=== PATIENT | female | born 1985 | race Caucasian/White ===

== ENCOUNTER 2017-08-29 16:18 | Day surgery (SDC) | payer OTHER ==
[~2017-08-29 16:18] MED LIST: CEFAZOLIN 1 GM INJ
[2017-08-29] MEDS ORDERED: PROPOFOL 20 ML (19:39)
[2017-08-29] MEDS ORDERED: ONDANSETRON 4 MG INJ (19:39)
[2017-08-29] MEDS ORDERED: MIDAZOLAM 1 MG/ML 2 ML INJ (19:39)
[2017-08-29] MEDS ORDERED: LABETALOL HCL 20MG INJ (19:40)
[2017-08-29] MEDS: BUPIVACAINE 0.5% (SDV) 30 ML INJ (20:01)
[2017-08-29] MEDS: LIDOCAINE 1% (MPF) 30 ML INJ (20:01)
[2017-08-29] MEDS: VANCOMYCIN 1 GM INJ (20:02)
[2017-08-29] MEDS ORDERED: HYDROCODONE/APAP (5/325) TAB PO (20:30)
== END 2017-08-29 21:35 | disposition home or self-care (01) ==
LOC: SDS 16:18
DX: E11.621 Type 2 diabetes mellitus with foot ulcer (principal); L97.529 Non-pressure chronic ulcer of other part of left foot with unspecified severity; E11.42 Type 2 diabetes mellitus with diabetic polyneuropathy; M86.9 Osteomyelitis, unspecified; Z89.429 Acquired absence of other toe(s), unspecified side
CPT/HCPCS: 15120; 82962; 84703

== ENCOUNTER 2018-12-14 20:56 | Inpatient (IN) | payer OTHER ==
[2018-12-14 23:04] LABS: URINE BLOOD (Dip) POC 3+ (NEGATIVE); URINE KETONES (Dip) POC 1+ (NEGATIVE); URINE LEUKOCYTE EST (Dip) POC Negative (NEGATIVE); URINE NITRITE (Dip) POC Negative (NEGATIVE); URINE TOTAL PROTEIN POC 3+ (NEGATIVE)
[2018-12-14 23:04] LABS: URINE PH (Dip) POC 8.5 (5.0-8.5)
[2018-12-14 23:05] LABS: ADD MAN DIFF? NO
[2018-12-14 23:07] LABS: WHITE BLOOD COUNT 13.7 10^3/ul (4.8-10.8)
[2018-12-14 23:07] LABS: BASOPHIL # 0.1 10^3/ul (0.0-0.1); BASOPHILS % 0.7 % (0.0-2.0); HEMATOCRIT 37.9 % (37.0-47.0); HEMOGLOBIN 12.3 g/dl (12.0-16.0); LYMPHOCYTES # 0.9 10^3/ul (0.8-2.9); LYMPHOCYTES % 6.9 % (15.0-51.0); MEAN CORPUSCULAR HGB CONC 32.5 g/dl (32.0-37.0); MEAN CORPUSCULAR VOLUME 83.1 fl (82.0-101.0); MEAN PLATELET VOLUME 10.7 fl (7.4-10.4); MONOCYTE # 0.8 10^3/ul (0.3-0.9); NEUTROPHIL # 11.8 10^3/ul (1.6-7.5); NEUTROPHILS % 86.1 % (39.0-77.0); PLATELET COUNT 470 10^3/UL (140-415); RED BLOOD COUNT 4.56 10^6/ul (4.20-5.40); RED CELL DISTRIBUTION WIDTH 21.8 % (11.5-14.5)
[2018-12-14] MEDS: SOD CHLORIDE 0.9% 1,000 ML IV (23:29)
[2018-12-14] MEDS: morphine 4 MG/ML VIAL IV (23:29)
[2018-12-14] MEDS: FAMOTIDINE 20 MG INJ IV (23:29)
[2018-12-14] MEDS: METOCLOPRAMIDE 10 MG INJ IV (23:29)
[2018-12-14 23:31] LABS: ALANINE AMINOTRANSFERASE 50 IU/L (13-69); ALBUMIN 3.6 g/dl (3.3-4.9); ALBUMIN/GLOBULIN RATIO 1.09; ALKALINE PHOSPHATASE 140 IU/L (42-121); ANION GAP 7 (5-13); ASPARTATE AMINO TRANSFERASE 50 IU/L (15-46); BILIRUBIN,INDIRECT 0.3 mg/dl (0-1.1); BILIRUBIN,TOTAL 0.3 mg/dl (0.2-1.3); BLOOD UREA NITROGEN 32 mg/dl (7-20); CALCIUM 9.2 mg/dl (8.4-10.2); CARBON DIOXIDE 27 mmol/L (21-31); CHLORIDE 108 mmol/L (97-110); CREATININE 3.26 mg/dl (0.44-1.00); Estimated GFR 16 mL/min (>60); GLUCOSE 141 mg/dl (70-220); LIPASE 86 U/L (23-300); POTASSIUM 4.4 mmol/L (3.5-5.1); SODIUM 142 mmol/L (135-144); TOTAL PROTEIN 6.9 g/dl (6.1-8.1)
[2018-12-14 23:41] LABS: TROPONIN-I 0.047 ng/ml (0.000-0.120)
[2018-12-15] MEDS: PIPER-TAZO 3.375 GM IV (PMX) 100 ML IVPB (01:43)
[2018-12-15] MEDS: SODIUM CHLORIDE 0.9% 1L BAG IV* (01:43)
[2018-12-15] MEDS ORDERED: ACETAMINOPHEN 325 MG TAB PO (03:00)
[2018-12-15] MEDS: ONDANSETRON 4 MG INJ IV ×4 (03:27→19:15)
[2018-12-15] MEDS: LABETALOL HCL 20MG INJ IV ×2 (03:27→06:00)
[2018-12-15 03:54] LABS: URINE PH (Dip) POC 7.5 (5.0-8.5)
[2018-12-15 03:54] LABS: URINE BLOOD (Dip) POC 2+ (NEGATIVE); URINE KETONES (Dip) POC Trace (NEGATIVE); URINE LEUKOCYTE EST (Dip) POC Negative (NEGATIVE); URINE NITRITE (Dip) POC Negative (NEGATIVE); URINE TOTAL PROTEIN POC 3+ (NEGATIVE)
[2018-12-15] MEDS ORDERED: PIPER-TAZO 3.375 GM IV (PMX) 100 ML IVPB (04:00)
[2018-12-15] MEDS ORDERED: ALBUTEROL/IPRATROPIUM (NEB) 3 ML AMP HHN (04:00)
[2018-12-15] MEDS ORDERED: GLUCOSE GEL 15 GRAM TUBE PO ×4 (04:00→09:00)
[2018-12-15] MEDS ORDERED: DEXTROSE 50% 50 ML SYRINGE IV ×4 (04:00→09:00)
[2018-12-15] MEDS ORDERED: GLUCOSE GEL 15 GRAM TUBE BUCCAL ×2 (04:00→09:00)
[2018-12-15] MEDS ORDERED: GLUCAGON 1 MG INJ IM ×2 (04:00→09:00)
[2018-12-15] MEDS ORDERED: ACETAMINOPHEN 650 MG SUPP PR (04:00)
[2018-12-15] MEDS ORDERED: NACL 0.9% 3 ML SYG IV (04:00)
[2018-12-15] MEDS: DEXTROSE 5%-0.45% NACL 1,000 ML IV (04:09)
[2018-12-15] MEDS: morphine 4 MG/ML VIAL IV (04:09)
[2018-12-15] MEDS: hydrALAzine 20 MG INJ IV ×4 (04:31→20:39)
[2018-12-15 05:45] LABS: ADD MAN DIFF? NO
[2018-12-15 05:48] LABS: WHITE BLOOD COUNT 12.7 10^3/ul (4.8-10.8)
[2018-12-15 05:48] LABS: BASOPHIL # 0.1 10^3/ul (0.0-0.1); BASOPHILS % 0.7 % (0.0-2.0); EOSINOPHILS % 0.1 % (0.0-7.0); HEMATOCRIT 31.2 % (37.0-47.0); LYMPHOCYTES # 1.1 10^3/ul (0.8-2.9); LYMPHOCYTES % 8.3 % (15.0-51.0); MEAN CORPUSCULAR HEMOGLOBIN 27.1 pg (29.0-33.0); MEAN CORPUSCULAR HGB CONC 32.1 g/dl (32.0-37.0); MEAN CORPUSCULAR VOLUME 84.6 fl (82.0-101.0); MONOCYTE # 0.8 10^3/ul (0.3-0.9); NEUTROPHIL # 10.7 10^3/ul (1.6-7.5); NEUTROPHILS % 84.3 % (39.0-77.0); PLATELET COUNT 386 10^3/UL (140-415); RED BLOOD COUNT 3.69 10^6/ul (4.20-5.40); RED CELL DISTRIBUTION WIDTH 21.4 % (11.5-14.5)
[2018-12-15] MEDS ORDERED: LABETALOL HCL 20MG INJ IV (06:00)
[2018-12-15 06:08] LABS: HEMOGLOBIN A1C 5.6 % (0-5.9)
[2018-12-15 06:13] LABS: ALANINE AMINOTRANSFERASE 43 IU/L (13-69); ALBUMIN 2.6 g/dl (3.3-4.9); ALBUMIN/GLOBULIN RATIO 0.92; ALKALINE PHOSPHATASE 99 IU/L (42-121); ANION GAP 6 (5-13); ASPARTATE AMINO TRANSFERASE 40 IU/L (15-46); BILIRUBIN,INDIRECT 0.2 mg/dl (0-1.1); BILIRUBIN,TOTAL 0.2 mg/dl (0.2-1.3); BLOOD UREA NITROGEN 28 mg/dl (7-20); CALCIUM 7.7 mg/dl (8.4-10.2); CARBON DIOXIDE 22 mmol/L (21-31); CHLORIDE 112 mmol/L (97-110); CHOL/HDL RATIO 3.9 RATIO; CHOLESTEROL 170 mg/dl (100-200); CREATININE 2.69 mg/dl (0.44-1.00); Estimated GFR 20 mL/min (>60); GLUCOSE 230 mg/dl (70-220); HDL CHOLESTEROL 43 mg/dl (34-82); LDL CHOLESTEROL,CALCULATED 103 mg/dl; MAGNESIUM 1.8 mg/dl (1.7-2.5); PHOSPHORUS 4.7 mg/dl (2.5-4.9); POTASSIUM 3.8 mmol/L (3.5-5.1); SODIUM 140 mmol/L (135-144); TOTAL PROTEIN 5.4 g/dl (6.1-8.1); TRIGLYCERIDES 118 mg/dl (0-149)
[2018-12-15] MEDS: PIPER-TAZO 2.25 GM (PMX) 50 ML IVPB ×3 (06:48→22:21)
[2018-12-15] MEDS: INSULIN ASPART [NOVOLOG] 3 ML PEN SC ×6 (08:00→20:44)
[2018-12-15] MEDS: LACTATED RINGER'S 1,000 ML IV ×2 (08:53→21:30)
[2018-12-15] MEDS: ENALAPRILAT 1.25 MG INJ IV ×3 (08:54→22:20)
[2018-12-15 09:05] LABS: IRON 38 ug/dl (35-150)
[2018-12-15 09:14] LABS: % IRON SATURATION 20 % SAT (22-52); TOTAL IRON BINDING CAPACITY 192 ug/dl (241-421)
[2018-12-15] MEDS: INSULIN GLARGINE [LANTus] (100 UNITS/ML) SYG SC (09:25)
[2018-12-15] MEDS: ACCU-CHEK XX ×4 (09:25→20:41)
[2018-12-15 10:14] LABS: HEPATITIS B SURFACE ANTIGEN NEGATIVE (NEGATIVE)
[2018-12-15 10:31] LABS: HEPATITIS C VIRAL ANTIBODY NEGATIVE (NEGATIVE)
[2018-12-15 10:32] LABS: HEPATITIS B SURFACE ANTIBODY NEGATIVE (NEGATIVE)
[2018-12-15] MEDS: morphine 2 MG INJ IV (19:47)
[2018-12-16] MEDS: Insulin NOVOLOG SS MILD Algorithm (NPO/TPN/ENTERAL FEEDS) SC ×6 (01:00→20:18)
[2018-12-16] MEDS ORDERED: INSULIN ASPART [NOVOLOG] 3 ML PEN SC (01:00)
[2018-12-16] MEDS: ACCU-CHEK XX ×4 (01:03→20:00)
[2018-12-16] MEDS: ONDANSETRON 4 MG INJ IV (01:10)
[2018-12-16] MEDS: hydrALAzine 20 MG INJ IV ×2 (01:13→08:02)
[2018-12-16] MEDS ORDERED: ACCU-CHEK XX (02:00)
[2018-12-16] MEDS: LACTATED RINGER'S 1,000 ML IV ×3 (05:12→21:30)
[2018-12-16 06:10] LABS: ADD MAN DIFF? NO
[2018-12-16] MEDS: PIPER-TAZO 2.25 GM (PMX) 50 ML IVPB ×3 (06:26→21:26)
[2018-12-16] MEDS: ENALAPRILAT 1.25 MG INJ IV ×3 (06:28→21:31)
[2018-12-16 06:29] LABS: BASOPHIL # 0.1 10^3/ul (0.0-0.1); BASOPHILS % 0.8 % (0.0-2.0); EOSINOPHILS % 0.1 % (0.0-7.0); HEMATOCRIT 31.1 % (37.0-47.0); HEMOGLOBIN 10.1 g/dl (12.0-16.0); LYMPHOCYTES # 1.2 10^3/ul (0.8-2.9); LYMPHOCYTES % 9.9 % (15.0-51.0); MEAN CORPUSCULAR HEMOGLOBIN 27.5 pg (29.0-33.0); MEAN CORPUSCULAR HGB CONC 32.5 g/dl (32.0-37.0); MEAN CORPUSCULAR VOLUME 84.7 fl (82.0-101.0); MEAN PLATELET VOLUME 11.4 fl (7.4-10.4); MONOCYTE # 1.1 10^3/ul (0.3-0.9); MONOCYTES % 8.5 % (0.0-11.0); NEUTROPHIL # 10.1 10^3/ul (1.6-7.5); NEUTROPHILS % 80.1 % (39.0-77.0); PLATELET COUNT 381 10^3/UL (140-415); RED BLOOD COUNT 3.67 10^6/ul (4.20-5.40)
[2018-12-16 06:29] LABS: WHITE BLOOD COUNT 12.6 10^3/ul (4.8-10.8)
[2018-12-16 06:50] LABS: ANION GAP 7 (5-13); BLOOD UREA NITROGEN 33 mg/dl (7-20); CALCIUM 8.1 mg/dl (8.4-10.2); CARBON DIOXIDE 22 mmol/L (21-31); CHLORIDE 114 mmol/L (97-110); CREATININE 3.49 mg/dl (0.44-1.00); Estimated GFR 15 mL/min (>60); GLUCOSE 88 mg/dl (70-220); PHOSPHORUS 5.6 mg/dl (2.5-4.9); POTASSIUM 3.8 mmol/L (3.5-5.1); SODIUM 143 mmol/L (135-144)
[2018-12-16] MEDS: INSULIN GLARGINE [LANTus] (100 UNITS/ML) SYG SC ×2 (08:00→09:07)
[2018-12-16] MEDS: INSULIN ASPART [NOVOLOG] 3 ML PEN SC ×3 (08:00→17:40)
[2018-12-16] MEDS: SOD FERRIC GLUC COMPLX 125 MG in SOD CHLORIDE 0.9% 100 ML IVPB (11:19)
[2018-12-16] MEDS: METOPROLOL 50 MG TAB PO ×2 (11:19→20:19)
[2018-12-16] MEDS: CALCIUM CARBONATE 500 MG CHEW TAB PO ×2 (13:00→17:54)
[2018-12-16] MEDS: ERGOCALCIFEROL 50,000 UNIT CAP PO (17:38)
[2018-12-17] MEDS: Insulin NOVOLOG SS MILD Algorithm (NPO/TPN/ENTERAL FEEDS) SC ×6 (00:35→21:00)
[2018-12-17] MEDS: ACCU-CHEK XX ×4 (01:01→21:10)
[2018-12-17 05:14] LABS: ABNORMAL IP MESSAGE 1; ADD MAN DIFF? NO; BASOPHIL # 0.1 10^3/ul (0.0-0.1); EOSINOPHILS # 0.3 10^3/ul (0.0-0.5); EOSINOPHILS % 2.9 % (0.0-7.0); HEMATOCRIT 28.6 % (37.0-47.0); LYMPHOCYTES # 2.3 10^3/ul (0.8-2.9); LYMPHOCYTES % 22.2 % (15.0-51.0); MEAN CORPUSCULAR HEMOGLOBIN 27.2 pg (29.0-33.0); MEAN CORPUSCULAR HGB CONC 31.5 g/dl (32.0-37.0); MEAN CORPUSCULAR VOLUME 86.4 fl (82.0-101.0); MONOCYTE # 1.2 10^3/ul (0.3-0.9); MONOCYTES % 11.9 % (0.0-11.0); NEUTROPHIL # 6.4 10^3/ul (1.6-7.5); NEUTROPHILS % 61.5 % (39.0-77.0); PLATELET COUNT 336 10^3/UL (140-415); RED BLOOD COUNT 3.31 10^6/ul (4.20-5.40)
[2018-12-17 05:14] LABS: WHITE BLOOD COUNT 10.4 10^3/ul (4.8-10.8)
[2018-12-17 05:30] LABS: MAGNESIUM 1.9 mg/dl (1.7-2.5)
[2018-12-17 05:30] LABS: PHOSPHORUS 5.1 mg/dl (2.5-4.9)
[2018-12-17 05:37] LABS: ALANINE AMINOTRANSFERASE 37 IU/L (13-69); ALBUMIN 2.4 g/dl (3.3-4.9); ALBUMIN/GLOBULIN RATIO 0.88; ALKALINE PHOSPHATASE 76 IU/L (42-121); ANION GAP 6 (5-13); ASPARTATE AMINO TRANSFERASE 23 IU/L (15-46); BILIRUBIN,INDIRECT 0.1 mg/dl (0-1.1); BILIRUBIN,TOTAL 0.1 mg/dl (0.2-1.3); BLOOD UREA NITROGEN 35 mg/dl (7-20); CALCIUM 7.7 mg/dl (8.4-10.2); CARBON DIOXIDE 21 mmol/L (21-31); CHLORIDE 110 mmol/L (97-110); Estimated GFR 15 mL/min (>60); GLUCOSE 70 mg/dl (70-220); POTASSIUM 3.8 mmol/L (3.5-5.1); SODIUM 137 mmol/L (135-144); TOTAL PROTEIN 5.1 g/dl (6.1-8.1)
[2018-12-17] MEDS: ENALAPRILAT 1.25 MG INJ IV ×3 (05:51→21:09)
[2018-12-17] MEDS: PIPER-TAZO 2.25 GM (PMX) 50 ML IVPB ×3 (05:51→21:10)
[2018-12-17 06:58] LABS: POSITIVE DIFF @See below
[2018-12-17] MEDS: INSULIN ASPART [NOVOLOG] 3 ML PEN SC ×3 (08:00→17:43)
[2018-12-17] MEDS: FOLIC ACID 1 MG TAB PO (08:03)
[2018-12-17] MEDS: CALCIUM CARBONATE 500 MG CHEW TAB PO ×3 (08:04→18:26)
[2018-12-17] MEDS: METOPROLOL 50 MG TAB PO ×2 (08:05→21:09)
[2018-12-17] MEDS: INSULIN GLARGINE [LANTus] (100 UNITS/ML) SYG SC (08:09)
[2018-12-17] MEDS: LACTATED RINGER'S 1,000 ML IV ×2 (10:58→23:30)
[2018-12-18] MEDS: Insulin NOVOLOG SS MILD Algorithm (NPO/TPN/ENTERAL FEEDS) SC ×6 (01:00→21:00)
[2018-12-18] MEDS: ACCU-CHEK XX ×4 (01:27→20:00)
[2018-12-18] MEDS: ENALAPRILAT 1.25 MG INJ IV (05:20)
[2018-12-18] MEDS: PIPER-TAZO 2.25 GM (PMX) 50 ML IVPB ×3 (05:21→22:14)
[2018-12-18] MEDS: LACTATED RINGER'S 1,000 ML IV (05:25)
[2018-12-18] MEDS: CALCIUM CARBONATE 500 MG CHEW TAB PO ×3 (08:23→19:00)
[2018-12-18] MEDS: FOLIC ACID 1 MG TAB PO (08:23)
[2018-12-18] MEDS: METOPROLOL 50 MG TAB PO ×2 (08:24→20:26)
[2018-12-18] MEDS: INSULIN GLARGINE [LANTus] (100 UNITS/ML) SYG SC (08:28)
[2018-12-18] MEDS: INSULIN ASPART [NOVOLOG] 3 ML PEN SC ×3 (08:28→17:54)
[2018-12-18] MEDS ORDERED: INDOMETHACIN 50 MG SUPP PR (09:30)
[2018-12-18] MEDS: DEXTROSE 5%-0.45% NACL 1,000 ML IV (11:00)
[2018-12-18] MEDS ORDERED: NIFEdipine (XL) 30 MG TAB PO (12:30)
[2018-12-18] MEDS ORDERED: hydrALAzine 20 MG INJ IV (12:30)
[2018-12-18] MEDS: NA BICARBONATE 650 MG TAB PO ×2 (12:53→20:25)
[2018-12-18] MEDS: FUROSEMIDE 40 MG TAB PO (12:53)
[2018-12-18] MEDS: CLONIDINE 0.2 MG/24 HR PATCH TRANSDERM (14:46)
[2018-12-18] MEDS: DOCUSATE SODIUM 100 MG CAP PO (20:25)
[2018-12-18] MEDS: FERROUS SULFATE (EC) 325 MG TAB PO (20:26)
[2018-12-19] MEDS: Insulin NOVOLOG SS MILD Algorithm (NPO/TPN/ENTERAL FEEDS) SC ×5 (01:00→17:00)
[2018-12-19] MEDS: DEXTROSE 5%-0.45% NACL 1,000 ML IV ×2 (01:07→18:03)
[2018-12-19] MEDS: ACCU-CHEK XX ×4 (01:08→20:00)
[2018-12-19 05:20] LABS: ADD MAN DIFF? NO
[2018-12-19 05:25] LABS: BASOPHIL # 0.1 10^3/ul (0.0-0.1); BASOPHILS % 0.8 % (0.0-2.0); EOSINOPHILS # 0.5 10^3/ul (0.0-0.5); EOSINOPHILS % 4.2 % (0.0-7.0); HEMATOCRIT 29.2 % (37.0-47.0); HEMOGLOBIN 9.5 g/dl (12.0-16.0); LYMPHOCYTES # 2.2 10^3/ul (0.8-2.9); LYMPHOCYTES % 20.4 % (15.0-51.0); MEAN CORPUSCULAR HEMOGLOBIN 27.7 pg (29.0-33.0); MEAN CORPUSCULAR HGB CONC 32.5 g/dl (32.0-37.0); MEAN CORPUSCULAR VOLUME 85.1 fl (82.0-101.0); MEAN PLATELET VOLUME 11.6 fl (7.4-10.4); MONOCYTE # 1.1 10^3/ul (0.3-0.9); MONOCYTES % 10.1 % (0.0-11.0); NEUTROPHIL # 6.9 10^3/ul (1.6-7.5); NEUTROPHILS % 64.1 % (39.0-77.0); PLATELET COUNT 356 10^3/UL (140-415); RED BLOOD COUNT 3.43 10^6/ul (4.20-5.40)
[2018-12-19 05:25] LABS: WHITE BLOOD COUNT 10.8 10^3/ul (4.8-10.8)
[2018-12-19] MEDS: PIPER-TAZO 2.25 GM (PMX) 50 ML IVPB ×3 (05:36→21:49)
[2018-12-19 05:51] LABS: ANION GAP 6 (5-13); BLOOD UREA NITROGEN 34 mg/dl (7-20); CALCIUM 7.7 mg/dl (8.4-10.2); CARBON DIOXIDE 20 mmol/L (21-31); CHLORIDE 112 mmol/L (97-110); Estimated GFR 15 mL/min (>60); GLUCOSE 80 mg/dl (70-220); PHOSPHORUS 4.9 mg/dl (2.5-4.9); POTASSIUM 3.6 mmol/L (3.5-5.1); SODIUM 138 mmol/L (135-144)
[2018-12-19] MEDS: INSULIN ASPART [NOVOLOG] 3 ML PEN SC ×3 (07:58→18:02)
[2018-12-19] MEDS: hydrALAzine 20 MG INJ IV (08:21)
[2018-12-19] MEDS: CALCIUM CARBONATE 500 MG CHEW TAB PO ×3 (09:00→19:10)
[2018-12-19] MEDS: DOCUSATE SODIUM 100 MG CAP PO ×2 (09:00→20:40)
[2018-12-19] MEDS: NA BICARBONATE 650 MG TAB PO ×3 (09:00→20:40)
[2018-12-19] MEDS: FERROUS SULFATE (EC) 325 MG TAB PO ×2 (09:00→20:40)
[2018-12-19] MEDS: FOLIC ACID 1 MG TAB PO (09:00)
[2018-12-19] MEDS: METOPROLOL 50 MG TAB PO ×2 (09:49→20:41)
[2018-12-19] MEDS: FUROSEMIDE 40 MG TAB PO (09:49)
[2018-12-19] MEDS: NIFEdipine (XL) 60 MG TAB PO ×2 (09:49→20:42)
[2018-12-19] MEDS: INSULIN GLARGINE [LANTus] (100 UNITS/ML) SYG SC (09:53)
[2018-12-19 13:42] LABS: ADD UMIC YES; UR ASCORBIC ACID NEGATIVE (NEGATIVE); UR BILIRUBIN (Dip) NEGATIVE (NEGATIVE); UR BLOOD (Dip) 1+ mg/dL (NEGATIVE); UR CLARITY CLEAR (CLEAR); UR COLOR STRAW (YELLOW); UR GLUCOSE (Dip) 2+ mg/dL (NEGATIVE); UR KETONES (Dip) NEGATIVE (NEGATIVE); UR LEUKOCYTE ESTERASE (Dip) NEGATIVE Leu/ul (NEGATIVE); UR NITRITE (Dip) NEGATIVE (NEGATIVE); UR RBC 1 /HPF (0-5); UR SPECIFIC GRAVITY (Dip) 1.007 (1.003-1.030); UR TOTAL PROTEIN (Dip) 3+ mg/dl (NEGATIVE); UR UROBILINOGEN (Dip) NEGATIVE (NEGATIVE); UR WBC 1 /HPF (0-5)
[2018-12-19 13:57] LABS: SODIUM,URINE RANDOM 56 mmol/L (30-90)
[2018-12-19 13:57] LABS: CREATININE,URINE RANDOM 38.91 mg/dl (20-320)
[2018-12-19] MEDS ORDERED: IOHEXOL 300MG/ML 30 ML BTL (15:51)
[2018-12-19] MEDS ORDERED: LIDOCAINE 2% (SDV) 5 ML INJ (16:05)
[2018-12-19] MEDS ORDERED: PROPOFOL 20 ML (16:05)
[2018-12-19] MEDS ORDERED: ROCURONIUM 50 MG INJ (16:07)
[2018-12-19] MEDS ORDERED: DEXAMETHASONE 4 MG/ML 5 ML INJ (16:31)
[2018-12-19] MEDS ORDERED: ONDANSETRON 4 MG INJ (16:31)
[2018-12-19] MEDS ORDERED: SUGAMMADEX SODIUM 200 MG/2 ML VIAL IV (16:43)
[2018-12-19] MEDS: Insulin NOVOLOG SS MILD Algorithm (SS with meals and bedtime) SC (20:40)
[2018-12-19] MEDS ORDERED: INSULIN ASPART [NOVOLOG] 3 ML PEN SC (21:00)
[2018-12-20] MEDS: ACCU-CHEK XX ×3 (01:25→14:00)
[2018-12-20 05:30] LABS: WHITE BLOOD COUNT 11.2 10^3/ul (4.8-10.8)
[2018-12-20 05:30] LABS: ADD MAN DIFF? NO; BASOPHILS % 0.3 % (0.0-2.0); HEMATOCRIT 31.1 % (37.0-47.0); LYMPHOCYTES # 0.7 10^3/ul (0.8-2.9); LYMPHOCYTES % 6.2 % (15.0-51.0); MEAN CORPUSCULAR HGB CONC 32.2 g/dl (32.0-37.0); MEAN CORPUSCULAR VOLUME 84.1 fl (82.0-101.0); MEAN PLATELET VOLUME 11.2 fl (7.4-10.4); MONOCYTE # 0.6 10^3/ul (0.3-0.9); MONOCYTES % 4.9 % (0.0-11.0); NEUTROPHIL # 9.9 10^3/ul (1.6-7.5); NEUTROPHILS % 88.2 % (39.0-77.0); PLATELET COUNT 345 10^3/UL (140-415); RED CELL DISTRIBUTION WIDTH 21.2 % (11.5-14.5)
[2018-12-20] MEDS: PIPER-TAZO 2.25 GM (PMX) 50 ML IVPB ×2 (05:57→14:07)
[2018-12-20 06:02] LABS: ANION GAP 6 (5-13); BLOOD UREA NITROGEN 32 mg/dl (7-20); CALCIUM 7.9 mg/dl (8.4-10.2); CARBON DIOXIDE 18 mmol/L (21-31); CHLORIDE 114 mmol/L (97-110); CREATININE 3.27 mg/dl (0.44-1.00); Estimated GFR 16 mL/min (>60); GLUCOSE 137 mg/dl (70-220); POTASSIUM 4.2 mmol/L (3.5-5.1); SODIUM 138 mmol/L (135-144)
[2018-12-20] MEDS: Insulin NOVOLOG SS MILD Algorithm (SS with meals and bedtime) SC ×2 (07:00→11:30)
[2018-12-20] MEDS: DOCUSATE SODIUM 100 MG CAP PO (08:39)
[2018-12-20] MEDS: METOPROLOL 50 MG TAB PO (08:40)
[2018-12-20] MEDS: NA BICARBONATE 650 MG TAB PO ×2 (08:40→12:55)
[2018-12-20] MEDS: NIFEdipine (XL) 60 MG TAB PO (08:40)
[2018-12-20] MEDS: FOLIC ACID 1 MG TAB PO (08:40)
[2018-12-20] MEDS: FUROSEMIDE 40 MG TAB PO (08:40)
[2018-12-20] MEDS: FERROUS SULFATE (EC) 325 MG TAB PO (08:40)
[2018-12-20] MEDS: CALCIUM CARBONATE 500 MG CHEW TAB PO ×2 (08:40→12:55)
[2018-12-20] MEDS: INSULIN GLARGINE [LANTus] (100 UNITS/ML) SYG SC (08:42)
[2018-12-20] MEDS: INSULIN ASPART [NOVOLOG] 3 ML PEN SC ×2 (08:43→12:54)
[2018-12-21 16:51] LABS: CREATININE, RANDOM URINE 41 mg/dL (20-275); MICROALBUMIN 203.7 mg/dL; MICROALBUMIN/CREATININE RATIO 4968 (<30)
== END 2018-12-20 15:30 | disposition home or self-care (01) | DRG 445 ==
LOC: E/R 20:56 → 2NE 12-15 02:55
PROC: 0F798ZZ Dilation of Common Bile Duct, Via Natural or Artificial Opening Endoscopic (ICD-10-PCS; principal; 2018-12-19 16:15)
DX: K80.21 Calculus of gallbladder without cholecystitis with obstruction (principal); N17.9 Acute kidney failure, unspecified; Z68.41 Body mass index [BMI] 40.0-44.9, adult; R65.10 Systemic inflammatory response syndrome (SIRS) of non-infectious origin without acute organ dysfunction; N18.4 Chronic kidney disease, stage 4 (severe); I16.0 Hypertensive urgency; E66.01 Morbid (severe) obesity due to excess calories; D64.9 Anemia, unspecified; K76.0 Fatty (change of) liver, not elsewhere classified; E11.9 Type 2 diabetes mellitus without complications; E83.39 Other disorders of phosphorus metabolism; I12.9 Hypertensive chronic kidney disease with stage 1 through stage 4 chronic kidney disease, or unspecified chronic kidney disease; R11.2 Nausea with vomiting, unspecified
CPT/HCPCS: 36415; 74181; 74330; 76705; 78226; 80048; 80053; 80061; 81001; 81003; 82043; 82962; 83036; 83540; 83605; 83690; 83735; 84100; 84155; 84300; 84484; 84703; 85025; 85651; 86706; 86708; 86803; 87040-91; 87340; 93005; 96374; 96375; 99285-25

== ENCOUNTER 2019-03-10 00:54 | Inpatient (IN) | payer OTHER ==
[2019-03-10 01:27] LABS: URINE PH (Dip) POC 6.5 (5.0-8.5)
[2019-03-10 01:27] LABS: ADD MAN DIFF? NO; URINE BLOOD (Dip) POC 2+ (NEGATIVE); URINE KETONES (Dip) POC 1+ (NEGATIVE); URINE LEUKOCYTE EST (Dip) POC Negative (NEGATIVE); URINE NITRITE (Dip) POC Negative (NEGATIVE); URINE TOTAL PROTEIN POC 3+ (NEGATIVE)
[2019-03-10] MEDS: ACETAMINOPHEN 500 MG TAB PO (01:28)
[2019-03-10] MEDS: PIPER-TAZO 3.375 GM IV (PMX) 100 ML IVPB (01:28)
[2019-03-10 01:31] LABS: ABNORMAL IP MESSAGE 1; BASOPHIL # 0.1 10^3/ul (0.0-0.1); BASOPHILS % 0.4 % (0.0-2.0); EOSINOPHILS # 0.1 10^3/ul (0.0-0.5); EOSINOPHILS % 0.2 % (0.0-7.0); HEMOGLOBIN 8.8 g/dl (12.0-16.0); LYMPHOCYTES # 1.1 10^3/ul (0.8-2.9); LYMPHOCYTES % 3.7 % (15.0-51.0); MEAN CORPUSCULAR HEMOGLOBIN 29.2 pg (29.0-33.0); MEAN CORPUSCULAR HGB CONC 32.6 g/dl (32.0-37.0); MEAN CORPUSCULAR VOLUME 89.7 fl (82.0-101.0); MONOCYTE # 1.8 10^3/ul (0.3-0.9); MONOCYTES % 6.3 % (0.0-11.0); NEUTROPHIL # 25.1 10^3/ul (1.6-7.5); NEUTROPHILS % 88.4 % (39.0-77.0); PLATELET COUNT 506 10^3/UL (140-415); RED BLOOD COUNT 3.01 10^6/ul (4.20-5.40); RED CELL DISTRIBUTION WIDTH 14.2 % (11.5-14.5)
[2019-03-10 01:31] LABS: WHITE BLOOD COUNT 28.4 10^3/ul (4.8-10.8)
[2019-03-10] MEDS: SODIUM CHLORIDE 0.9% 1L BAG IV* (01:35)
[2019-03-10 01:38] LABS: POSITIVE DIFF @See below
[2019-03-10 01:45] LABS: ADD UMIC YES; UR AMORPHOUS CRYSTAL FEW /HPF (NONE SEEN); UR ASCORBIC ACID NEGATIVE (NEGATIVE); UR BACTERIA FEW /HPF (NONE SEEN); UR BILIRUBIN (Dip) NEGATIVE (NEGATIVE); UR BLOOD (Dip) 1+ mg/dL (NEGATIVE); UR CLARITY SLIGHTLY CLOUDY (CLEAR); UR COLOR YELLOW (YELLOW); UR GLUCOSE (Dip) 3+ mg/dL (NEGATIVE); UR KETONES (Dip) TRACE mg/dL (NEGATIVE); UR LEUKOCYTE ESTERASE (Dip) NEGATIVE Leu/ul (NEGATIVE); UR MUCUS FEW /HPF (NONE SEEN); UR NITRITE (Dip) NEGATIVE (NEGATIVE); UR RBC 10 /HPF (0-5); UR SPECIFIC GRAVITY (Dip) 1.018 (1.003-1.030); UR SQUAMOUS EPITHELIAL CELL FEW /HPF (FEW); UR TOTAL PROTEIN (Dip) 3+ mg/dl (NEGATIVE); UR UROBILINOGEN (Dip) NEGATIVE (NEGATIVE); UR WBC 7 /HPF (0-5)
[2019-03-10 01:49] LABS: ALANINE AMINOTRANSFERASE 14 IU/L (13-69); ALBUMIN 3.1 g/dl (3.3-4.9); ALBUMIN/GLOBULIN RATIO 0.81; ALKALINE PHOSPHATASE 104 IU/L (42-121); ANION GAP 11 (5-13); ASPARTATE AMINO TRANSFERASE 19 IU/L (15-46); BILIRUBIN,INDIRECT 0.2 mg/dl (0-1.1); BILIRUBIN,TOTAL 0.2 mg/dl (0.2-1.3); BLOOD UREA NITROGEN 38 mg/dl (7-20); CALCIUM 8.3 mg/dl (8.4-10.2); CARBON DIOXIDE 17 mmol/L (21-31); CHLORIDE 113 mmol/L (97-110); Estimated GFR 13 mL/min (>60); GLUCOSE 106 mg/dl (70-220); SODIUM 141 mmol/L (135-144); TOTAL PROTEIN 6.9 g/dl (6.1-8.1)
[2019-03-10 01:50] LABS: INR 1.19; PROTIME 15.2 Sec (11.9-14.9); PT RATIO 1.2
[2019-03-10 01:51] LABS: PARTIAL THROMBOPLASTIN TIME 35.1 Sec (23.0-35.0)
[2019-03-10] MEDS ORDERED: ACETAMINOPHEN 325 MG TAB PO (02:00)
[2019-03-10 02:01] LABS: TROPONIN-I 0.027 ng/ml (0.000-0.120)
[2019-03-10] MEDS: VANCOMYCIN 1 GM (PMX) 250 ML IVPB (02:15)
[2019-03-10] MEDS ORDERED: NACL 0.9% 3 ML SYG IV (02:30)
[2019-03-10] MEDS: ONDANSETRON 4 MG INJ IV ×3 (02:35→20:57)
[2019-03-10] MEDS: NIFEdipine (XL) 60 MG TAB PO ×3 (02:36→20:55)
[2019-03-10] MEDS: METOPROLOL 50 MG TAB PO ×3 (02:36→20:55)
[2019-03-10] MEDS: VANCOMYCIN 1 GM in 250 ML IVPB (04:42)
[2019-03-10 04:55] LABS: LACTIC ACID 0.7 mmol/L (0.5-2.0)
[2019-03-10 06:49] LABS: LACTIC ACID 0.8 mmol/L (0.5-2.0)
[2019-03-10] MEDS: CEFEPIME 1GM/50 ML (PMX) 50 ML IVPB ×2 (08:34→21:03)
[2019-03-10] MEDS: FOLIC ACID 1 MG TAB PO (08:37)
[2019-03-10] MEDS: HYDROCODONE/APAP (5/325) TAB PO (08:37)
[2019-03-10] MEDS: HEPARIN 5,000 UNIT/1 ML VIAL SC ×2 (08:40→21:00)
[2019-03-10] MEDS: FERROUS SULFATE (EC) 325 MG TAB PO ×2 (08:42→21:00)
[2019-03-10] MEDS ORDERED: VANCOMYCIN IV PER PHARMACY XX (09:00)
[2019-03-10] MEDS ORDERED: GLUCOSE GEL 15 GRAM TUBE PO ×2 (10:30)
[2019-03-10] MEDS ORDERED: DEXTROSE 50% 50 ML SYRINGE IV ×2 (10:30)
[2019-03-10] MEDS ORDERED: GLUCAGON 1 MG INJ IM (10:30)
[2019-03-10] MEDS ORDERED: GLUCOSE GEL 15 GRAM TUBE BUCCAL (10:30)
[2019-03-10 10:47] LABS: IRON < 10 ug/dl (35-150)
[2019-03-10 10:49] LABS: TOTAL IRON BINDING CAPACITY 164 ug/dl (241-421)
[2019-03-10] MEDS ORDERED: INSULIN GLARGINE [LANTus] (100 UNITS/ML) SYG SC (11:00)
[2019-03-10 11:36] LABS: HEMOGLOBIN A1C 5.8 % (0-5.9)
[2019-03-10] MEDS: INSULIN ASPART [NOVOLOG] 3 ML PEN SC ×3 (12:00→20:53)
[2019-03-10 12:35] LABS: C-REACTIVE PROTEIN 21.3 mg/dl (0.0-0.9)
[2019-03-10 12:51] LABS: ERYTHROCYTE SEDIMENTATION RATE 140 mm/Hr (0-20)
[2019-03-10] MEDS ORDERED: POLYMYXIN/BACITRACIN 1L IRRIG (15:11)
[2019-03-10] MEDS ORDERED: MIDAZOLAM 1 MG/ML 2 ML INJ (15:25)
[2019-03-10] MEDS ORDERED: ROPIVACAINE 0.5 % 30 ML VIAL (15:26)
[2019-03-10] MEDS ORDERED: FENTAnyl 50 MCG/ML VIAL ×2 (15:26→15:40)
[2019-03-10] MEDS ORDERED: BUPIVACAINE 0.5% (SDV) 30 ML INJ (15:29)
[2019-03-10] MEDS ORDERED: CEFAZOLIN 1 GM INJ (15:38)
[2019-03-10] MEDS: BACITRACIN 50000 UNITS INJ (15:54)
[2019-03-10] MEDS: POLYMYXIN B 500000 UNIT INJ (15:55)
[2019-03-10] MEDS ORDERED: LIDOCAINE 2% (SDV) 5 ML INJ (16:18)
[2019-03-10] MEDS ORDERED: PROPOFOL 20 ML (16:18)
[2019-03-10] MEDS ORDERED: ONDANSETRON 4 MG INJ (16:18)
[2019-03-10] MEDS ORDERED: hydrALAzine 20 MG INJ IV (16:30)
[2019-03-10] MEDS ORDERED: FENTAnyl 50 MCG/ML VIAL IV (16:30)
[2019-03-10] MEDS ORDERED: ONDANSETRON 4 MG INJ IV (16:30)
[2019-03-10] MEDS ORDERED: METOCLOPRAMIDE 10 MG INJ IV (16:30)
[2019-03-10] MEDS ORDERED: DIPHENHYDRAMINE 50 MG INJ IV (16:30)
[2019-03-10] MEDS ORDERED: HYDROmorphONE 1 MG/5 ML IV SYRINGE IV ×2 (16:30)
[2019-03-10] MEDS ORDERED: NALOXONE (0.4 MG/ML) INJ IV (16:30)
[2019-03-10] MEDS ORDERED: LABETALOL HCL 20MG INJ IV (16:30)
[2019-03-10] MEDS ORDERED: MEPERIDINE 25 MG INJ IV (16:30)
[2019-03-10] MEDS: INSULIN GLARGINE [LANTus] (100 UNITS/ML) SYG SC (21:02)
[2019-03-11] MEDS: ACCU-CHEK XX (01:27)
[2019-03-11] MEDS: METOCLOPRAMIDE 10 MG INJ IV (02:28)
[2019-03-11 06:44] LABS: ABNORMAL IP MESSAGE 1; HEMATOCRIT 19.9 % (37.0-47.0); MEAN CORPUSCULAR HEMOGLOBIN 29.5 pg (29.0-33.0); MEAN CORPUSCULAR HGB CONC 32.2 g/dl (32.0-37.0); MEAN CORPUSCULAR VOLUME 91.7 fl (82.0-101.0); MEAN PLATELET VOLUME 10.1 fl (7.4-10.4); PLATELET COUNT 463 10^3/UL (140-415); RED BLOOD COUNT 2.17 10^6/ul (4.20-5.40); RED CELL DISTRIBUTION WIDTH 14.8 % (11.5-14.5)
[2019-03-11 06:44] LABS: WHITE BLOOD COUNT 30.3 10^3/ul (4.8-10.8)
[2019-03-11 06:45] LABS: ADD MAN DIFF? YES; HEMOGLOBIN 6.4 g/dl (12.0-16.0); POSITIVE DIFF @See below
[2019-03-11 06:46] LABS: PATH REVIEW? YES
[2019-03-11 07:11] LABS: ALANINE AMINOTRANSFERASE 15 IU/L (13-69); ALBUMIN 2.4 g/dl (3.3-4.9); ALKALINE PHOSPHATASE 82 IU/L (42-121); ANION GAP 11 (5-13); ASPARTATE AMINO TRANSFERASE 13 IU/L (15-46); BILIRUBIN,INDIRECT 0.1 mg/dl (0-1.1); BILIRUBIN,TOTAL 0.1 mg/dl (0.2-1.3); BLOOD UREA NITROGEN 46 mg/dl (7-20); CALCIUM 7.6 mg/dl (8.4-10.2); CARBON DIOXIDE 13 mmol/L (21-31); CHLORIDE 113 mmol/L (97-110); CHOL/HDL RATIO 4.7 RATIO; CHOLESTEROL 109 mg/dl (100-200); Estimated GFR 9 mL/min (>60); GLUCOSE 111 mg/dl (70-220); HDL CHOLESTEROL 23 mg/dl (34-82); LDL CHOLESTEROL,CALCULATED 61 mg/dl; PHOSPHORUS 6.8 mg/dl (2.5-4.9); POTASSIUM 4.4 mmol/L (3.5-5.1); SODIUM 137 mmol/L (135-144); TOTAL PROTEIN 5.8 g/dl (6.1-8.1); TRIGLYCERIDES 127 mg/dl (0-149)
[2019-03-11 07:42] LABS: HEMOGLOBIN 6.4 g/dl (12.0-16.0)
[2019-03-11] MEDS: INSULIN ASPART [NOVOLOG] 3 ML PEN SC ×4 (08:00→20:59)
[2019-03-11] MEDS: DAKINS 0.0125%(1/40) 473 ML SOLUTION TP (09:00)
[2019-03-11] MEDS: CEFEPIME 1GM/50 ML (PMX) 50 ML IVPB (09:32)
[2019-03-11] MEDS: FOLIC ACID 1 MG TAB PO (09:33)
[2019-03-11] MEDS: METOPROLOL 50 MG TAB PO ×2 (09:34→21:02)
[2019-03-11] MEDS: NIFEdipine (XL) 60 MG TAB PO ×2 (09:34→21:02)
[2019-03-11] MEDS: EPOETIN ALFA-EPBX (NON-ESRD 10,000 UNIT/ML VIAL SC (09:35)
[2019-03-11] MEDS: HEPARIN 5,000 UNIT/1 ML VIAL SC ×2 (09:36→21:05)
[2019-03-11] MEDS: FERROUS SULFATE (EC) 325 MG TAB PO ×2 (09:38→20:59)
[2019-03-11 10:41] LABS: BAND NEUTROPHILS #M 0.3 10^3/ul (0.0-0.6); BAND NEUTROPHILS % (M) 1 % (0-4); BURR CELLS 1+ (0-0); GIANT THROMBO% (M) 2 % (0-0); LYMPHOCYTES #M 2.1 10^3/ul (0.8-2.9); LYMPHOCYTES % (M) 7 % (15-51); MONOCYTE #M 0.9 10^3/ul (0.3-0.9); MONOCYTES % (M) 3 % (0-11); PLATELET ESTIMATE INCREASED; POIKILOCYTOSIS 2+ (0-0); POLYCHROMASIA 2+ (0-0); SEG NEUT #M 27.1 10^3/ul (1.6-7.5); SEGMENTED NEUTROPHILS (M) % 89 % (39-77); SMUDGE%M 25 % (0-0)
[2019-03-11 11:26] LABS: IMMEDIATE SPIN CROSSMATCH 1 2
[2019-03-11] MEDS: SOD FERRIC GLUC COMPLX 125 MG in SOD CHLORIDE 0.9% 100 ML IVPB (13:00)
[2019-03-11] MEDS ORDERED: FUROSEMIDE 40 MG INJ IV (16:00)
[2019-03-11] MEDS: ACETAMINOPHEN 325 MG TAB PO (20:59)
[2019-03-11] MEDS: INSULIN GLARGINE [LANTus] (100 UNITS/ML) SYG SC (21:04)
[2019-03-11] MEDS: FUROSEMIDE 40 MG TAB PO (23:04)
[2019-03-12] MEDS: HYDROCODONE/APAP (5/325) TAB PO ×2 (00:48→11:51)
[2019-03-12] MEDS: DAPTOMYCIN 500 MG in SOD CHLORIDE 0.9% 100 ML IVPB (01:14)
[2019-03-12] MEDS: FUROSEMIDE 40 MG INJ IV (01:47)
[2019-03-12] MEDS: ACCU-CHEK XX (01:59)
[2019-03-12] MEDS: INSULIN ASPART [NOVOLOG] 3 ML PEN SC ×4 (08:00→21:00)
[2019-03-12 08:27] LABS: ADD MAN DIFF? NO
[2019-03-12 08:30] LABS: BASOPHIL # 0.1 10^3/ul (0.0-0.1); BASOPHILS % 0.4 % (0.0-2.0); EOSINOPHILS # 0.2 10^3/ul (0.0-0.5); EOSINOPHILS % 0.8 % (0.0-7.0); HEMATOCRIT 25.2 % (37.0-47.0); LYMPHOCYTES # 1.6 10^3/ul (0.8-2.9); LYMPHOCYTES % 7.1 % (15.0-51.0); MEAN CORPUSCULAR HEMOGLOBIN 28.9 pg (29.0-33.0); MEAN CORPUSCULAR HGB CONC 31.7 g/dl (32.0-37.0); MEAN PLATELET VOLUME 10.6 fl (7.4-10.4); MONOCYTE # 1.4 10^3/ul (0.3-0.9); MONOCYTES % 6.2 % (0.0-11.0); NEUTROPHIL # 18.9 10^3/ul (1.6-7.5); NEUTROPHILS % 84.3 % (39.0-77.0); NUCLEATED RED BLOOD CELLS # 0.1 10^3/ul (0.0-0.0); NUCLEATED RED BLOOD CELLS% 0.4 /100WBC (0.0-0.0); PLATELET COUNT 523 10^3/UL (140-415); RED BLOOD COUNT 2.77 10^6/ul (4.20-5.40); RED CELL DISTRIBUTION WIDTH 15.3 % (11.5-14.5)
[2019-03-12 08:30] LABS: WHITE BLOOD COUNT 22.4 10^3/ul (4.8-10.8)
[2019-03-12] MEDS: DAKINS 0.0125%(1/40) 473 ML SOLUTION TP (09:00)
[2019-03-12] MEDS: HEPARIN 5,000 UNIT/1 ML VIAL SC ×2 (09:00→21:32)
[2019-03-12 09:28] LABS: ANION GAP 15 (5-13); BLOOD UREA NITROGEN 55 mg/dl (7-20); CALCIUM 7.6 mg/dl (8.4-10.2); CARBON DIOXIDE 11 mmol/L (21-31); CHLORIDE 111 mmol/L (97-110); CREATININE 6.64 mg/dl (0.44-1.00); Estimated GFR 7 mL/min (>60); GLUCOSE 94 mg/dl (70-220); MAGNESIUM 2.1 mg/dl (1.7-2.5); PHOSPHORUS 8.2 mg/dl (2.5-4.9); POTASSIUM 4.8 mmol/L (3.5-5.1); SODIUM 137 mmol/L (135-144)
[2019-03-12 09:54] LABS: CREATINE KINASE 65 IU/L (23-200)
[2019-03-12] MEDS: FOLIC ACID 1 MG TAB PO (10:25)
[2019-03-12] MEDS: FERROUS SULFATE (EC) 325 MG TAB PO ×2 (10:25→21:28)
[2019-03-12] MEDS: CEFEPIME 1GM/50 ML (PMX) 50 ML IVPB (10:26)
[2019-03-12] MEDS: METOPROLOL 50 MG TAB PO ×2 (10:26→21:29)
[2019-03-12] MEDS: NIFEdipine (XL) 60 MG TAB PO ×2 (10:26→21:29)
[2019-03-12 12:12] LABS: HAAIG REFLEX REFLEX FILED
[2019-03-12] MEDS: CEFTRIAXONE 1 GM/50 ML (PMX) 50 ML IVPB (12:28)
[2019-03-12] MEDS: SOD FERRIC GLUC COMPLX 125 MG in SOD CHLORIDE 0.9% 100 ML IVPB (13:00)
[2019-03-12 13:17] LABS: COMPLEMENT C3 111 mg/dl (88-165); COMPLEMENT C4 43 mg/dl (14-44)
[2019-03-12 13:41] LABS: HEPATITIS B SURFACE ANTIGEN NEGATIVE (NEGATIVE)
[2019-03-12] MEDS: ONDANSETRON 4 MG INJ IV (13:47)
[2019-03-12 13:59] LABS: HEPATITIS B CORE ANTIBODY NEGATIVE (NEGATIVE); HEPATITIS C VIRAL ANTIBODY NEGATIVE (NEGATIVE)
[2019-03-12 15:48] LABS: RHEUMATOID FACTOR NEGATIVE (NEGATIVE)
[2019-03-12] MEDS: INSULIN GLARGINE [LANTus] (100 UNITS/ML) SYG SC (21:33)
[2019-03-13] MEDS: ONDANSETRON 4 MG INJ IV (00:32)
[2019-03-13] MEDS: ACCU-CHEK XX (01:50)
[2019-03-13] MEDS: morphine 2 MG INJ IV ×2 (04:20→23:05)
[2019-03-13 06:26] LABS: ADD MAN DIFF? NO
[2019-03-13 06:33] LABS: BASOPHIL # 0.1 10^3/ul (0.0-0.1); BASOPHILS % 0.6 % (0.0-2.0); EOSINOPHILS # 0.1 10^3/ul (0.0-0.5); EOSINOPHILS % 0.6 % (0.0-7.0); HEMATOCRIT 26.5 % (37.0-47.0); HEMOGLOBIN 8.4 g/dl (12.0-16.0); LYMPHOCYTES # 1.4 10^3/ul (0.8-2.9); MEAN CORPUSCULAR HEMOGLOBIN 28.6 pg (29.0-33.0); MEAN CORPUSCULAR HGB CONC 31.7 g/dl (32.0-37.0); MEAN CORPUSCULAR VOLUME 90.1 fl (82.0-101.0); MEAN PLATELET VOLUME 10.7 fl (7.4-10.4); MONOCYTE # 1.3 10^3/ul (0.3-0.9); MONOCYTES % 5.7 % (0.0-11.0); NEUTROPHIL # 19.6 10^3/ul (1.6-7.5); NEUTROPHILS % 85.4 % (39.0-77.0); NUCLEATED RED BLOOD CELLS # 0.1 10^3/ul (0.0-0.0); NUCLEATED RED BLOOD CELLS% 0.4 /100WBC (0.0-0.0); PLATELET COUNT 544 10^3/UL (140-415); RED BLOOD COUNT 2.94 10^6/ul (4.20-5.40); RED CELL DISTRIBUTION WIDTH 14.8 % (11.5-14.5)
[2019-03-13 06:57] LABS: ANION GAP 13 (5-13); BLOOD UREA NITROGEN 62 mg/dl (7-20); CALCIUM 7.5 mg/dl (8.4-10.2); CARBON DIOXIDE 12 mmol/L (21-31); CHLORIDE 110 mmol/L (97-110); CREATININE 8.19 mg/dl (0.44-1.00); Estimated GFR 6 mL/min (>60); GLUCOSE 83 mg/dl (70-220); MAGNESIUM 2.2 mg/dl (1.7-2.5); POTASSIUM 4.7 mmol/L (3.5-5.1); SODIUM 135 mmol/L (135-144)
[2019-03-13] MEDS: INSULIN ASPART [NOVOLOG] 3 ML PEN SC ×4 (08:00→20:49)
[2019-03-13] MEDS: METOPROLOL 50 MG TAB PO ×2 (08:18→21:50)
[2019-03-13] MEDS: NIFEdipine (XL) 60 MG TAB PO ×2 (08:19→21:51)
[2019-03-13] MEDS: HEPARIN 5,000 UNIT/1 ML VIAL SC ×2 (08:20→21:52)
[2019-03-13] MEDS: FERROUS SULFATE (EC) 325 MG TAB PO ×2 (08:21→21:50)
[2019-03-13] MEDS: FOLIC ACID 1 MG TAB PO (08:22)
[2019-03-13] MEDS: DAKINS 0.0125%(1/40) 473 ML SOLUTION TP (08:24)
[2019-03-13] MEDS: CEFTRIAXONE 1 GM/50 ML (PMX) 50 ML IVPB (11:37)
[2019-03-13] MEDS: SOD FERRIC GLUC COMPLX 125 MG in SOD CHLORIDE 0.9% 100 ML IVPB (13:00)
[2019-03-13 15:06] LABS: ANA SCREEN NEGATIVE (NEGATIVE)
[2019-03-13 18:16] LABS: MYELOPEROXIDASE ANTIBODY <1.0 AI; PROTEINASE-3 ANTIBODY <1.0 AI
[2019-03-13] MEDS: HEPARIN 1000 UNITS/ML 10 ML INJ CATHETER (20:46)
[2019-03-13] MEDS: INSULIN GLARGINE [LANTus] (100 UNITS/ML) SYG SC (21:00)
[2019-03-13] MEDS: DAPTOMYCIN 500 MG in SOD CHLORIDE 0.9% 100 ML IVPB (22:01)
[2019-03-14] MEDS: INSULIN ASPART [NOVOLOG] 3 ML PEN SC ×5 (01:00→16:50)
[2019-03-14] MEDS: DEXTROSE 5%-0.45% NACL 1,000 ML IV (01:19)
[2019-03-14] MEDS: ACCU-CHEK XX (02:00)
[2019-03-14] MEDS: FOLIC ACID 1 MG TAB PO (08:43)
[2019-03-14] MEDS: METOPROLOL 50 MG TAB PO ×2 (08:43→21:05)
[2019-03-14] MEDS: FERROUS SULFATE (EC) 325 MG TAB PO ×2 (08:43→21:05)
[2019-03-14] MEDS: HEPARIN 5,000 UNIT/1 ML VIAL SC ×2 (08:44→21:07)
[2019-03-14] MEDS: NIFEdipine (XL) 60 MG TAB PO ×2 (08:44→21:05)
[2019-03-14] MEDS: DAKINS 0.0125%(1/40) 473 ML SOLUTION TP (08:45)
[2019-03-14] MEDS: CALCIUM ACETATE 667 MG CAP PO ×2 (11:30→16:50)
[2019-03-14] MEDS: HEPARIN 1000 UNITS/ML 10 ML INJ CATHETER (11:33)
[2019-03-14] MEDS: POLYETHYLENE GLYCOL 17 GM PACKET PO (11:44)
[2019-03-14] MEDS: HYDROCODONE/APAP (5/325) TAB PO (11:44)
[2019-03-14] MEDS: CEFTRIAXONE 1 GM/50 ML (PMX) 50 ML IVPB (12:39)
[2019-03-14 12:52] LABS: ANCA SCREEN NEGATIVE (NEGATIVE)
[2019-03-14] MEDS: SOD FERRIC GLUC COMPLX 125 MG in SOD CHLORIDE 0.9% 100 ML IVPB (13:50)
[2019-03-14 15:12] LABS: ANTI-DNA (DOUBLE STRANDED) <95 U/mL (< 301)
[2019-03-14] MEDS ORDERED: MIDAZOLAM 1 MG/ML 2 ML INJ (16:30)
[2019-03-14] MEDS ORDERED: FENTAnyl 50 MCG/ML VIAL (16:30)
[2019-03-14] MEDS ORDERED: PROPOFOL 20 ML (16:30)
[2019-03-14] MEDS ORDERED: ROPIVACAINE 0.2% 20 ML VIAL (16:30)
[2019-03-14] MEDS ORDERED: ONDANSETRON 4 MG INJ (16:31)
[2019-03-14] MEDS ORDERED: METOCLOPRAMIDE 10 MG INJ (16:31)
[2019-03-14] MEDS ORDERED: LIDOCAINE 1% (MPF) 30 ML INJ (16:35)
[2019-03-14] MEDS ORDERED: FENTAnyl 50 MCG/ML VIAL IV ×3 (17:00)
[2019-03-14] MEDS ORDERED: DIPHENHYDRAMINE 50 MG INJ IV (17:00)
[2019-03-14] MEDS ORDERED: HYDROmorphONE 1 MG/5 ML IV SYRINGE IV ×2 (17:00)
[2019-03-14] MEDS: HYDROmorphONE 1 MG/5 ML IV SYRINGE IV ×2 (17:16→17:32)
[2019-03-14] MEDS: ONDANSETRON 4 MG INJ IV (17:16)
[2019-03-14] MEDS: FENTAnyl 50 MCG/ML VIAL (17:22)
[2019-03-14] MEDS: LIDOCAINE 1% (MPF) 5 ML VIAL (17:22)
[2019-03-14] MEDS: HEPARIN 1000 UNITS/ML 10 ML INJ (17:22)
[2019-03-14] MEDS: hydrALAzine 20 MG INJ IV (17:37)
[2019-03-14] MEDS: MEPERIDINE 25 MG INJ IV (18:26)
[2019-03-14] MEDS ORDERED: HYDROmorphONE 2 MG/ML SYG IV (18:30)
[2019-03-14] MEDS ORDERED: LABETALOL HCL 20MG INJ IV (18:30)
[2019-03-14] MEDS: INSULIN GLARGINE [LANTus] (100 UNITS/ML) SYG SC (21:00)
[2019-03-14] MEDS: Insulin NOVOLOG SS MILD Algorithm (SS with meals and bedtime) SC (21:00)
[2019-03-14] MEDS ORDERED: INSULIN ASPART [NOVOLOG] 3 ML PEN SC (21:00)
[2019-03-15] MEDS: ACCUCHECK AT 2AM (Patients on SS coverage) XX (02:00)
[2019-03-15 06:07] LABS: ADD MAN DIFF? NO
[2019-03-15 06:15] LABS: WHITE BLOOD COUNT 29.7 10^3/ul (4.8-10.8)
[2019-03-15 06:15] LABS: ABNORMAL IP MESSAGE 1; BASOPHIL # 0.1 10^3/ul (0.0-0.1); BASOPHILS % 0.3 % (0.0-2.0); EOSINOPHILS # 0.3 10^3/ul (0.0-0.5); EOSINOPHILS % 0.8 % (0.0-7.0); HEMATOCRIT 24.5 % (37.0-47.0); HEMOGLOBIN 8.1 g/dl (12.0-16.0); LYMPHOCYTES # 1.8 10^3/ul (0.8-2.9); LYMPHOCYTES % 6.2 % (15.0-51.0); MEAN CORPUSCULAR HEMOGLOBIN 29.1 pg (29.0-33.0); MEAN CORPUSCULAR HGB CONC 33.1 g/dl (32.0-37.0); MEAN CORPUSCULAR VOLUME 88.1 fl (82.0-101.0); MEAN PLATELET VOLUME 10.2 fl (7.4-10.4); MONOCYTE # 1.8 10^3/ul (0.3-0.9); MONOCYTES % 6.2 % (0.0-11.0); NEUTROPHILS % 84.1 % (39.0-77.0); NUCLEATED RED BLOOD CELLS # 0.2 10^3/ul (0.0-0.0); NUCLEATED RED BLOOD CELLS% 0.5 /100WBC (0.0-0.0); PLATELET COUNT 534 10^3/UL (140-415); RED BLOOD COUNT 2.78 10^6/ul (4.20-5.40); RED CELL DISTRIBUTION WIDTH 14.4 % (11.5-14.5)
[2019-03-15 06:19] LABS: POSITIVE DIFF @See below
[2019-03-15 06:49] LABS: ANION GAP 6 (5-13); BLOOD UREA NITROGEN 37 mg/dl (7-20); CALCIUM 7.2 mg/dl (8.4-10.2); CARBON DIOXIDE 23 mmol/L (21-31); CHLORIDE 105 mmol/L (97-110); CREATININE 5.69 mg/dl (0.44-1.00); Estimated GFR 9 mL/min (>60); GLUCOSE 94 mg/dl (70-220); PHOSPHORUS 6.1 mg/dl (2.5-4.9); POTASSIUM 4.1 mmol/L (3.5-5.1); SODIUM 134 mmol/L (135-144)
[2019-03-15] MEDS: Insulin NOVOLOG SS MILD Algorithm (SS with meals and bedtime) SC ×4 (07:30→20:33)
[2019-03-15] MEDS: HEPARIN 5,000 UNIT/1 ML VIAL SC ×2 (08:17→20:32)
[2019-03-15] MEDS: CALCIUM ACETATE 667 MG CAP PO ×3 (08:17→16:57)
[2019-03-15] MEDS: FOLIC ACID 1 MG TAB PO (08:17)
[2019-03-15] MEDS: POLYETHYLENE GLYCOL 17 GM PACKET PO (08:17)
[2019-03-15] MEDS: FERROUS SULFATE (EC) 325 MG TAB PO ×2 (08:17→20:30)
[2019-03-15] MEDS: METOPROLOL 50 MG TAB PO ×2 (08:18→20:30)
[2019-03-15] MEDS: NIFEdipine (XL) 60 MG TAB PO ×2 (08:18→20:30)
[2019-03-15] MEDS: MULTIVIT/CA CARB/B CMPLX/FA TAB PO (08:20)
[2019-03-15] MEDS: DAKINS 0.0125%(1/40) 473 ML SOLUTION TP (08:20)
[2019-03-15] MEDS: DEXTROSE 5%-0.45% NACL 1,000 ML IV (08:20)
[2019-03-15] MEDS: HYDROCODONE/APAP (5/325) TAB PO (08:35)
[2019-03-15] MEDS: EPOETIN ALFA-EPBX (ESRD) 10,000 UNIT/ML VIAL SC (10:03)
[2019-03-15] MEDS: HEPARIN 1000 UNITS/ML 10 ML INJ CATHETER (12:47)
[2019-03-15] MEDS: CEFTRIAXONE 1 GM/50 ML (PMX) 50 ML IVPB (13:00)
[2019-03-15] MEDS: SOD FERRIC GLUC COMPLX 125 MG in SOD CHLORIDE 0.9% 100 ML IVPB (13:50)
[2019-03-15] MEDS: INSULIN GLARGINE [LANTus] (100 UNITS/ML) SYG SC (20:32)
[2019-03-16] MEDS ORDERED: EUCERIN 113 GM CR TOP (01:00)
[2019-03-16] MEDS: HYDROCODONE/APAP (5/325) TAB PO (01:00)
[2019-03-16] MEDS: ACCUCHECK AT 2AM (Patients on SS coverage) XX (01:49)
[2019-03-16] MEDS: Insulin NOVOLOG SS MILD Algorithm (SS with meals and bedtime) SC ×4 (07:30→21:00)
[2019-03-16] MEDS: CALCIUM ACETATE 667 MG CAP PO ×3 (08:02→17:30)
[2019-03-16] MEDS: POLYETHYLENE GLYCOL 17 GM PACKET PO (08:59)
[2019-03-16] MEDS: METOPROLOL 50 MG TAB PO ×2 (09:01→21:24)
[2019-03-16] MEDS: MULTIVIT/CA CARB/B CMPLX/FA TAB PO (09:01)
[2019-03-16] MEDS: NIFEdipine (XL) 60 MG TAB PO ×2 (09:02→21:24)
[2019-03-16] MEDS: HEPARIN 5,000 UNIT/1 ML VIAL SC ×2 (09:02→21:26)
[2019-03-16] MEDS: FERROUS SULFATE (EC) 325 MG TAB PO ×2 (09:02→21:24)
[2019-03-16] MEDS: FOLIC ACID 1 MG TAB PO (09:02)
[2019-03-16] MEDS: EUCERIN 113 GM CR TOP ×2 (09:06→21:33)
[2019-03-16] MEDS: DAKINS 0.0125%(1/40) 473 ML SOLUTION TP (09:07)
[2019-03-16] MEDS: CEFTRIAXONE 2 GM/50 ML (PMX) 50 ML IVPB (12:29)
[2019-03-16 13:36] LABS: PROCALCITONIN 20.97 ng/mL (0.00-0.10)
[2019-03-16 13:42] LABS: ERYTHROCYTE SEDIMENTATION RATE 128 mm/Hr (0-20)
[2019-03-16] MEDS: metroNIDAZOLE 500 MG TAB PO ×2 (14:40→21:23)
[2019-03-16] MEDS: INSULIN GLARGINE [LANTus] (100 UNITS/ML) SYG SC (21:25)
[2019-03-17] MEDS: ACCUCHECK AT 2AM (Patients on SS coverage) XX (02:00)
[2019-03-17] MEDS: metroNIDAZOLE 500 MG TAB PO ×3 (06:22→21:18)
[2019-03-17] MEDS: HYDROCODONE/APAP (5/325) TAB PO (06:32)
[2019-03-17] MEDS: Insulin NOVOLOG SS MILD Algorithm (SS with meals and bedtime) SC ×4 (07:30→21:00)
[2019-03-17] MEDS: CALCIUM ACETATE 667 MG CAP PO ×3 (07:35→17:44)
[2019-03-17] MEDS: POLYETHYLENE GLYCOL 17 GM PACKET PO (09:00)
[2019-03-17] MEDS: EUCERIN 113 GM CR TOP ×2 (09:00→21:29)
[2019-03-17] MEDS: MULTIVIT/CA CARB/B CMPLX/FA TAB PO ×2 (09:00→17:44)
[2019-03-17] MEDS: DAKINS 0.0125%(1/40) 473 ML SOLUTION TP (09:00)
[2019-03-17] MEDS: FOLIC ACID 1 MG TAB PO ×2 (09:00→17:44)
[2019-03-17] MEDS: METOPROLOL 50 MG TAB PO ×2 (09:00→21:23)
[2019-03-17] MEDS: HEPARIN 5,000 UNIT/1 ML VIAL SC ×3 (09:00→21:00)
[2019-03-17] MEDS: FERROUS SULFATE (EC) 325 MG TAB PO ×2 (09:00→21:18)
[2019-03-17] MEDS: NIFEdipine (XL) 60 MG TAB PO (09:00)
[2019-03-17 12:22] LABS: ABNORMAL IP MESSAGE 1; HEMATOCRIT 24.6 % (37.0-47.0); HEMOGLOBIN 7.9 g/dl (12.0-16.0); MEAN CORPUSCULAR HGB CONC 32.1 g/dl (32.0-37.0); MEAN CORPUSCULAR VOLUME 90.4 fl (82.0-101.0); MEAN PLATELET VOLUME 9.8 fl (7.4-10.4); NUCLEATED RED BLOOD CELLS% 0.6 /100WBC (0.0-0.0); PLATELET COUNT 530 10^3/UL (140-415); RED BLOOD COUNT 2.72 10^6/ul (4.20-5.40); RED CELL DISTRIBUTION WIDTH 14.3 % (11.5-14.5)
[2019-03-17 12:22] LABS: WHITE BLOOD COUNT 18.2 10^3/ul (4.8-10.8)
[2019-03-17] MEDS ORDERED: POLYETHYLENE GLYCOL 17 GM PACKET PO (12:30)
[2019-03-17 12:38] LABS: POTASSIUM 3.7 mmol/L (3.5-5.1)
[2019-03-17 12:41] LABS: ANION GAP 6 (5-13); BLOOD UREA NITROGEN 20 mg/dl (7-20); CALCIUM 7.9 mg/dl (8.4-10.2); CARBON DIOXIDE 29 mmol/L (21-31); CHLORIDE 101 mmol/L (97-110); CREATININE 3.99 mg/dl (0.44-1.00); Estimated GFR 13 mL/min (>60); GLUCOSE 95 mg/dl (70-220); POTASSIUM 3.9 mmol/L (3.5-5.1); SODIUM 136 mmol/L (135-144)
[2019-03-17 12:43] LABS: ADD MAN DIFF? YES; POSITIVE DIFF @See below
[2019-03-17 13:16] LABS: BAND NEUTROPHILS #M 0.3 10^3/ul (0.0-0.6); BAND NEUTROPHILS % (M) 2 % (0-4); BASOPHIL #M 0.1 10^3/ul (0.0-0.0); BASOPHILS % (M) 1 % (0-2); EOSINOPHILS % (M) 1 % (0-7); GIANT THROMBO% (M) 1 % (0-0); LYMPHOCYTES #M 1.4 10^3/ul (0.8-2.9); LYMPHOCYTES % (M) 8 % (15-51); METAMYELOCYTES #M 0.5 10^3/ul (0.0-0.0); METAMYELOCYTES %M 3 % (0-0); MONOCYTE #M 0.7 10^3/ul (0.3-0.9); MONOCYTES % (M) 4 % (0-11); MYELOCYTES #M 0.1 10^3/ul (0.0-0.0); MYELOCYTES % (M) 1 % (0-0); PLATELET ESTIMATE INCREASED; POLYCHROMASIA 1+ (0-0); SEG NEUT #M 14.6 10^3/ul (1.6-7.5); SEGMENTED NEUTROPHILS (M) % 80 % (39-77); SMUDGE%M 1 % (0-0)
[2019-03-17] MEDS: HEPARIN 1000 UNITS/ML 10 ML INJ CATHETER (14:22)
[2019-03-17] MEDS: CEFTRIAXONE 2 GM/50 ML (PMX) 50 ML IVPB (14:27)
[2019-03-17] MEDS: FLUCONAZOLE 100 MG TAB PO (14:27)
[2019-03-17] MEDS: INSULIN GLARGINE [LANTus] (100 UNITS/ML) SYG SC (21:20)
[2019-03-17] MEDS: LOSARTAN 25 MG TAB PO (21:21)
[2019-03-18] MEDS: ACCUCHECK AT 2AM (Patients on SS coverage) XX (00:15)
[2019-03-18] MEDS ORDERED: INSULIN ASPART [NOVOLOG] 3 ML PEN SC ×2 (01:00→11:30)
[2019-03-18] MEDS: INSULIN ASPART [NOVOLOG] 3 ML PEN SC ×3 (01:00→09:00)
[2019-03-18 01:58] LABS: HIV 1&2 ANTIBODY NEGATIVE (NEGATIVE)
[2019-03-18] MEDS: metroNIDAZOLE 500 MG TAB PO (05:52)
[2019-03-18 06:41] LABS: ABNORMAL IP MESSAGE 1; HEMATOCRIT 25.2 % (37.0-47.0); MEAN CORPUSCULAR HGB CONC 31.7 g/dl (32.0-37.0); MEAN CORPUSCULAR VOLUME 91.3 fl (82.0-101.0); MEAN PLATELET VOLUME 10.4 fl (7.4-10.4); NUCLEATED RED BLOOD CELLS% 0.3 /100WBC (0.0-0.0); PLATELET COUNT 540 10^3/UL (140-415); RED BLOOD COUNT 2.76 10^6/ul (4.20-5.40); RED CELL DISTRIBUTION WIDTH 14.4 % (11.5-14.5)
[2019-03-18 06:42] LABS: PLATELET COUNT 549 10^3/UL (140-415)
[2019-03-18 06:48] LABS: POSITIVE DIFF @See below
[2019-03-18 06:49] LABS: ADD MAN DIFF? YES
[2019-03-18 07:00] LABS: INR 1.08; PROTIME 14.1 Sec (11.9-14.9); PT RATIO 1.1
[2019-03-18 07:01] LABS: PARTIAL THROMBOPLASTIN TIME 41.9 Sec (23.0-35.0); THROMBIN TIME 17.3 SEC (13.8-19.1)
[2019-03-18 07:22] LABS: ANION GAP 7 (5-13); BLOOD UREA NITROGEN 21 mg/dl (7-20); CALCIUM 7.9 mg/dl (8.4-10.2); CARBON DIOXIDE 28 mmol/L (21-31); CHLORIDE 102 mmol/L (97-110); CREATININE 5.07 mg/dl (0.44-1.00); Estimated GFR 10 mL/min (>60); GLUCOSE 96 mg/dl (70-220); POTASSIUM 3.9 mmol/L (3.5-5.1); SODIUM 137 mmol/L (135-144)
[2019-03-18] MEDS: CALCIUM ACETATE 667 MG CAP PO ×3 (07:35→17:23)
[2019-03-18] MEDS ORDERED: MIDAZOLAM 1 MG/ML 2 ML INJ (08:18)
[2019-03-18] MEDS ORDERED: PROPOFOL 20 ML (08:18)
[2019-03-18] MEDS ORDERED: FENTAnyl 50 MCG/ML VIAL ×2 (08:18→09:12)
[2019-03-18] MEDS: LOSARTAN 25 MG TAB PO ×2 (09:00→21:23)
[2019-03-18] MEDS: FERROUS SULFATE (EC) 325 MG TAB PO ×2 (09:00→21:22)
[2019-03-18] MEDS: DAKINS 0.0125%(1/40) 473 ML SOLUTION TP (09:00)
[2019-03-18] MEDS: METOPROLOL 50 MG TAB PO ×2 (09:00→21:33)
[2019-03-18] MEDS: EUCERIN 113 GM CR TOP ×2 (09:00→21:38)
[2019-03-18] MEDS: FLUCONAZOLE 100 MG TAB PO ×2 (09:00→10:47)
[2019-03-18] MEDS: NIFEdipine (XL) 60 MG TAB PO (09:00)
[2019-03-18] MEDS: HEPARIN 5,000 UNIT/1 ML VIAL SC ×2 (09:00→21:25)
[2019-03-18] MEDS: FOLIC ACID 1 MG TAB PO (09:00)
[2019-03-18] MEDS: MULTIVIT/CA CARB/B CMPLX/FA TAB PO (09:00)
[2019-03-18 09:07] LABS: EOSINOPHILS % (M) 1 % (0-7); ERYTHROBLAST% (NRBC) (M) 2 % (0-0); GIANT THROMBO% (M) 3 % (0-0); LYMPHOCYTES #M 2.2 10^3/ul (0.8-2.9); LYMPHOCYTES % (M) 11 % (15-51); MONOCYTE #M 2.8 10^3/ul (0.3-0.9); MONOCYTES % (M) 14 % (0-11); PLATELET ESTIMATE INCREASED; POLYCHROMASIA 2+ (0-0); SEGMENTED NEUTROPHILS (M) % 74 % (39-77); SMUDGE%M 5 % (0-0)
[2019-03-18] MEDS: POLYMYXIN/BACITRACIN 1L IRRIG IRR (09:23)
[2019-03-18] MEDS ORDERED: LIDOCAINE 1% (MPF) 30 ML INJ (09:27)
[2019-03-18] MEDS ORDERED: HYDROmorphONE 1 MG/5 ML IV SYRINGE IV ×2 (09:30)
[2019-03-18] MEDS ORDERED: FENTAnyl 50 MCG/ML VIAL IV ×2 (09:30)
[2019-03-18] MEDS ORDERED: LABETALOL HCL 20MG INJ IV (09:30)
[2019-03-18] MEDS ORDERED: POLYMYXIN/BACITRACIN 1L IRRIG (10:01)
[2019-03-18] MEDS: hydrALAzine 20 MG INJ IV (10:11)
[2019-03-18] MEDS: Insulin NOVOLOG SS MILD Algorithm (SS with meals and bedtime) SC ×3 (11:30→21:00)
[2019-03-18] MEDS: CEFTRIAXONE 2 GM/50 ML (PMX) 50 ML IVPB (12:13)
[2019-03-18] MEDS: INSULIN GLARGINE [LANTus] (100 UNITS/ML) SYG SC (21:28)
[2019-03-18] MEDS: ONDANSETRON 4 MG INJ IV (21:59)
[2019-03-19] MEDS: ACCUCHECK AT 2AM (Patients on SS coverage) XX (02:00)
[2019-03-19] MEDS: Insulin NOVOLOG SS MILD Algorithm (SS with meals and bedtime) SC ×4 (07:30→20:48)
[2019-03-19] MEDS: HEPARIN 5,000 UNIT/1 ML VIAL SC ×2 (08:12→22:22)
[2019-03-19] MEDS: FOLIC ACID 1 MG TAB PO (08:13)
[2019-03-19] MEDS: FERROUS SULFATE (EC) 325 MG TAB PO ×2 (08:13→20:36)
[2019-03-19] MEDS: FLUCONAZOLE 100 MG TAB PO (08:13)
[2019-03-19] MEDS: DAKINS 0.0125%(1/40) 473 ML SOLUTION TP (08:13)
[2019-03-19] MEDS: MULTIVIT/CA CARB/B CMPLX/FA TAB PO (08:13)
[2019-03-19] MEDS: CALCIUM ACETATE 667 MG CAP PO ×3 (08:13→17:24)
[2019-03-19] MEDS: EUCERIN 113 GM CR TOP ×2 (08:14→20:45)
[2019-03-19] MEDS: NIFEdipine (XL) 60 MG TAB PO ×2 (08:14→20:37)
[2019-03-19] MEDS: LOSARTAN 25 MG TAB PO ×2 (08:15→20:36)
[2019-03-19] MEDS: METOPROLOL 50 MG TAB PO ×2 (08:15→20:37)
[2019-03-19] MEDS: ONDANSETRON 4 MG INJ IV ×2 (08:33→22:34)
[2019-03-19] MEDS: HEPARIN 1000 UNITS/ML 10 ML INJ CATHETER (12:25)
[2019-03-19] MEDS: CEFTRIAXONE 2 GM/50 ML (PMX) 50 ML IVPB (12:40)
[2019-03-19] MEDS: hydrALAzine 20 MG INJ IV (15:06)
[2019-03-20] MEDS: ACCUCHECK AT 2AM (Patients on SS coverage) XX (02:00)
[2019-03-20] MEDS: hydrALAzine 20 MG INJ IV ×2 (02:56→23:36)
[2019-03-20] MEDS: INSULIN ASPART [NOVOLOG] 3 ML PEN SC ×5 (05:00→20:35)
[2019-03-20] MEDS: HYDROCODONE/APAP (5/325) TAB PO (05:10)
[2019-03-20 06:37] LABS: ADD MAN DIFF? NO
[2019-03-20 06:44] LABS: WHITE BLOOD COUNT 19.7 10^3/ul (4.8-10.8)
[2019-03-20 06:44] LABS: BASOPHIL # 0.1 10^3/ul (0.0-0.1); BASOPHILS % 0.6 % (0.0-2.0); EOSINOPHILS # 0.5 10^3/ul (0.0-0.5); EOSINOPHILS % 2.3 % (0.0-7.0); HEMATOCRIT 28.1 % (37.0-47.0); HEMOGLOBIN 8.7 g/dl (12.0-16.0); LYMPHOCYTES # 1.8 10^3/ul (0.8-2.9); LYMPHOCYTES % 9.1 % (15.0-51.0); MEAN CORPUSCULAR HEMOGLOBIN 28.7 pg (29.0-33.0); MEAN CORPUSCULAR VOLUME 92.7 fl (82.0-101.0); MEAN PLATELET VOLUME 10.4 fl (7.4-10.4); MONOCYTE # 1.4 10^3/ul (0.3-0.9); MONOCYTES % 7.1 % (0.0-11.0); NEUTROPHIL # 15.4 10^3/ul (1.6-7.5); NEUTROPHILS % 78.2 % (39.0-77.0); NUCLEATED RED BLOOD CELLS% 0.1 /100WBC (0.0-0.0); PLATELET COUNT 493 10^3/UL (140-415); RED BLOOD COUNT 3.03 10^6/ul (4.20-5.40); RED CELL DISTRIBUTION WIDTH 14.7 % (11.5-14.5)
[2019-03-20 07:11] LABS: ANION GAP 7 (5-13); BLOOD UREA NITROGEN 15 mg/dl (7-20); CALCIUM 8.3 mg/dl (8.4-10.2); CARBON DIOXIDE 28 mmol/L (21-31); CHLORIDE 102 mmol/L (97-110); CREATININE 5.02 mg/dl (0.44-1.00); Estimated GFR 10 mL/min (>60); GLUCOSE 84 mg/dl (70-220); MAGNESIUM 2.1 mg/dl (1.7-2.5); POTASSIUM 3.8 mmol/L (3.5-5.1); SODIUM 137 mmol/L (135-144)
[2019-03-20] MEDS: CALCIUM ACETATE 667 MG CAP PO ×3 (08:41→17:29)
[2019-03-20] MEDS: FERROUS SULFATE (EC) 325 MG TAB PO ×2 (08:47→20:30)
[2019-03-20] MEDS: FLUCONAZOLE 100 MG TAB PO (08:47)
[2019-03-20] MEDS: LOSARTAN 25 MG TAB PO ×2 (08:47→20:31)
[2019-03-20] MEDS: FOLIC ACID 1 MG TAB PO (08:47)
[2019-03-20] MEDS: METOPROLOL 50 MG TAB PO ×2 (08:47→20:30)
[2019-03-20] MEDS: MULTIVIT/CA CARB/B CMPLX/FA TAB PO (08:48)
[2019-03-20] MEDS: NIFEdipine (XL) 60 MG TAB PO ×2 (08:48→20:31)
[2019-03-20] MEDS: HEPARIN 5,000 UNIT/1 ML VIAL SC ×2 (08:48→20:38)
[2019-03-20] MEDS: EUCERIN 113 GM CR TOP ×2 (08:51→20:35)
[2019-03-20] MEDS: DAKINS 0.0125%(1/40) 473 ML SOLUTION TP (08:52)
[2019-03-20] MEDS: DEXTROSE 5%-0.45% NACL 1,000 ML IV (10:34)
[2019-03-20] MEDS: CEFTRIAXONE 2 GM/50 ML (PMX) 50 ML IVPB (12:40)
[2019-03-20] MEDS ORDERED: LIDOCAINE 1% (MDV) 20 ML INJ ×2 (14:35→15:22)
[2019-03-20] MEDS ORDERED: HEPARIN 1000 UNITS/ML 10 ML INJ (15:15)
[2019-03-20] MEDS ORDERED: SOD CHLORIDE 0.9% 500 ML (15:16)
[2019-03-20] MEDS ORDERED: CEFAZOLIN 1 GM/50 ML (PMX) 50 ML IVPB (15:22)
[2019-03-20] MEDS ORDERED: FENTAnyl 50 MCG/ML VIAL (15:22)
[2019-03-21] MEDS: HYDROCODONE/APAP (5/325) TAB PO ×2 (00:39→08:44)
[2019-03-21] MEDS: ACCUCHECK AT 2AM (Patients on SS coverage) XX (01:28)
[2019-03-21 06:18] LABS: ADD MAN DIFF? NO
[2019-03-21 06:24] LABS: ABNORMAL IP MESSAGE 1; BASOPHIL # 0.1 10^3/ul (0.0-0.1); BASOPHILS % 0.5 % (0.0-2.0); EOSINOPHILS # 0.5 10^3/ul (0.0-0.5); EOSINOPHILS % 2.7 % (0.0-7.0); HEMATOCRIT 27.6 % (37.0-47.0); HEMOGLOBIN 8.7 g/dl (12.0-16.0); LYMPHOCYTES # 1.8 10^3/ul (0.8-2.9); LYMPHOCYTES % 9.4 % (15.0-51.0); MEAN CORPUSCULAR HEMOGLOBIN 29.1 pg (29.0-33.0); MEAN CORPUSCULAR HGB CONC 31.5 g/dl (32.0-37.0); MEAN CORPUSCULAR VOLUME 92.3 fl (82.0-101.0); MEAN PLATELET VOLUME 10.4 fl (7.4-10.4); MONOCYTE # 1.5 10^3/ul (0.3-0.9); NEUTROPHIL # 14.7 10^3/ul (1.6-7.5); NEUTROPHILS % 77.6 % (39.0-77.0); PLATELET COUNT 512 10^3/UL (140-415); RED BLOOD COUNT 2.99 10^6/ul (4.20-5.40); RED CELL DISTRIBUTION WIDTH 14.9 % (11.5-14.5)
[2019-03-21 06:38] LABS: POSITIVE DIFF @See below
[2019-03-21 06:49] LABS: ANION GAP 12 (5-13); BLOOD UREA NITROGEN 19 mg/dl (7-20); CALCIUM 8.1 mg/dl (8.4-10.2); CARBON DIOXIDE 24 mmol/L (21-31); CHLORIDE 101 mmol/L (97-110); CREATININE 6.25 mg/dl (0.44-1.00); Estimated GFR 8 mL/min (>60); GLUCOSE 73 mg/dl (70-220); POTASSIUM 3.8 mmol/L (3.5-5.1); SODIUM 137 mmol/L (135-144)
[2019-03-21] MEDS: INSULIN ASPART [NOVOLOG] 3 ML PEN SC ×4 (07:00→20:41)
[2019-03-21] MEDS: CALCIUM ACETATE 667 MG CAP PO ×3 (08:26→17:56)
[2019-03-21] MEDS: FLUCONAZOLE 100 MG TAB PO (08:26)
[2019-03-21] MEDS: MULTIVIT/CA CARB/B CMPLX/FA TAB PO (08:26)
[2019-03-21] MEDS: LOSARTAN 25 MG TAB PO ×2 (08:28→20:41)
[2019-03-21] MEDS: FERROUS SULFATE (EC) 325 MG TAB PO ×2 (08:28→20:41)
[2019-03-21] MEDS: FOLIC ACID 1 MG TAB PO (08:28)
[2019-03-21] MEDS: EUCERIN 113 GM CR TOP ×2 (08:29→20:42)
[2019-03-21] MEDS: HEPARIN 5,000 UNIT/1 ML VIAL SC ×2 (08:40→20:46)
[2019-03-21] MEDS: ONDANSETRON 4 MG INJ IV (08:44)
[2019-03-21] MEDS: METOPROLOL 50 MG TAB PO ×2 (09:00→20:41)
[2019-03-21] MEDS: NIFEdipine (XL) 60 MG TAB PO ×2 (09:00→20:40)
[2019-03-21] MEDS: CEFTRIAXONE 2 GM/50 ML (PMX) 50 ML IVPB (12:35)
[2019-03-21] MEDS: DAKINS 0.0125%(1/40) 473 ML SOLUTION TP (12:44)
[2019-03-21] MEDS: HEPARIN 5,000 UNIT/1 ML VIAL CATHETER (19:09)
[2019-03-22] MEDS: ACCUCHECK AT 2AM (Patients on SS coverage) XX (01:35)
[2019-03-22] MEDS: HYDROCODONE/APAP (5/325) TAB PO ×2 (02:43→11:31)
[2019-03-22 06:30] LABS: ADD MAN DIFF? NO
[2019-03-22 06:36] LABS: WHITE BLOOD COUNT 17.6 10^3/ul (4.8-10.8)
[2019-03-22 06:36] LABS: BASOPHIL # 0.1 10^3/ul (0.0-0.1); BASOPHILS % 0.5 % (0.0-2.0); EOSINOPHILS # 0.4 10^3/ul (0.0-0.5); EOSINOPHILS % 2.4 % (0.0-7.0); HEMATOCRIT 25.9 % (37.0-47.0); HEMOGLOBIN 8.1 g/dl (12.0-16.0); LYMPHOCYTES # 1.5 10^3/ul (0.8-2.9); LYMPHOCYTES % 8.7 % (15.0-51.0); MEAN CORPUSCULAR HEMOGLOBIN 29.2 pg (29.0-33.0); MEAN CORPUSCULAR HGB CONC 31.3 g/dl (32.0-37.0); MEAN CORPUSCULAR VOLUME 93.5 fl (82.0-101.0); MEAN PLATELET VOLUME 10.4 fl (7.4-10.4); MONOCYTE # 1.5 10^3/ul (0.3-0.9); MONOCYTES % 8.5 % (0.0-11.0); NEUTROPHIL # 13.9 10^3/ul (1.6-7.5); NEUTROPHILS % 78.7 % (39.0-77.0); PLATELET COUNT 458 10^3/UL (140-415); RED BLOOD COUNT 2.77 10^6/ul (4.20-5.40)
[2019-03-22 06:59] LABS: ANION GAP 4 (5-13); BLOOD UREA NITROGEN 19 mg/dl (7-20); CALCIUM 7.6 mg/dl (8.4-10.2); CARBON DIOXIDE 31 mmol/L (21-31); CHLORIDE 102 mmol/L (97-110); CREATININE 4.41 mg/dl (0.44-1.00); Estimated GFR 11 mL/min (>60); GLUCOSE 95 mg/dl (70-220); POTASSIUM 3.9 mmol/L (3.5-5.1); SODIUM 137 mmol/L (135-144)
[2019-03-22] MEDS: INSULIN ASPART [NOVOLOG] 3 ML PEN SC ×4 (07:00→21:00)
[2019-03-22 07:44] LABS: HEPATITIS B SURFACE ANTIBODY NEGATIVE (NEGATIVE)
[2019-03-22] MEDS: FLUCONAZOLE 100 MG TAB PO (08:23)
[2019-03-22] MEDS: MULTIVIT/CA CARB/B CMPLX/FA TAB PO (08:23)
[2019-03-22] MEDS: CALCIUM ACETATE 667 MG CAP PO ×3 (08:23→17:00)
[2019-03-22] MEDS: FERROUS SULFATE (EC) 325 MG TAB PO ×2 (08:24→20:27)
[2019-03-22] MEDS: NIFEdipine (XL) 60 MG TAB PO ×2 (08:24→20:28)
[2019-03-22] MEDS: METOPROLOL 50 MG TAB PO ×2 (08:24→20:28)
[2019-03-22] MEDS: LOSARTAN 25 MG TAB PO ×2 (08:24→20:27)
[2019-03-22] MEDS: FOLIC ACID 1 MG TAB PO (08:24)
[2019-03-22] MEDS: HEPARIN 5,000 UNIT/1 ML VIAL SC ×2 (08:26→20:31)
[2019-03-22] MEDS: EUCERIN 113 GM CR TOP ×2 (08:39→20:39)
[2019-03-22] MEDS: DOCUSATE SODIUM 100 MG CAP PO (08:39)
[2019-03-22] MEDS: DAKINS 0.0125%(1/40) 473 ML SOLUTION TP (11:12)
[2019-03-22] MEDS: CEFTRIAXONE 2 GM/50 ML (PMX) 50 ML IVPB (11:31)
[2019-03-23] MEDS: ACCUCHECK AT 2AM (Patients on SS coverage) XX (02:00)
[2019-03-23] MEDS: INSULIN ASPART [NOVOLOG] 3 ML PEN SC ×4 (07:00→21:00)
[2019-03-23] MEDS: CALCIUM ACETATE 667 MG CAP PO ×3 (08:00→18:06)
[2019-03-23] MEDS: MULTIVIT/CA CARB/B CMPLX/FA TAB PO (09:00)
[2019-03-23] MEDS: DAKINS 0.0125%(1/40) 473 ML SOLUTION TP ×2 (09:00→14:26)
[2019-03-23] MEDS: EUCERIN 113 GM CR TOP ×3 (09:00→21:19)
[2019-03-23] MEDS: DOCUSATE SODIUM 100 MG CAP PO (09:00)
[2019-03-23] MEDS: FERROUS SULFATE (EC) 325 MG TAB PO ×2 (09:00→21:00)
[2019-03-23] MEDS ORDERED: HEPARIN 1000 UNITS/ML 10 ML INJ CATHETER (10:30)
[2019-03-23] MEDS: HEPARIN 5,000 UNIT/1 ML VIAL CATHETER (11:53)
[2019-03-23] MEDS: METOPROLOL 50 MG TAB PO ×2 (13:04→21:18)
[2019-03-23] MEDS: FLUCONAZOLE 100 MG TAB PO (13:05)
[2019-03-23] MEDS: LOSARTAN 25 MG TAB PO ×2 (13:05→21:19)
[2019-03-23] MEDS: FOLIC ACID 1 MG TAB PO (13:05)
[2019-03-23] MEDS: NIFEdipine (XL) 60 MG TAB PO ×2 (13:05→21:19)
[2019-03-23] MEDS: HEPARIN 5,000 UNIT/1 ML VIAL SC ×2 (13:06→21:23)
[2019-03-23] MEDS: CEFTRIAXONE 2 GM/50 ML (PMX) 50 ML IVPB (14:18)
[2019-03-23] MEDS: HYDROCODONE/APAP (5/325) TAB PO (14:25)
[2019-03-24] MEDS: ACCUCHECK AT 2AM (Patients on SS coverage) XX (02:00)
[2019-03-24 06:48] LABS: ADD MAN DIFF? NO
[2019-03-24 06:59] LABS: WHITE BLOOD COUNT 13.3 10^3/ul (4.8-10.8)
[2019-03-24 06:59] LABS: BASOPHIL # 0.1 10^3/ul (0.0-0.1); BASOPHILS % 0.8 % (0.0-2.0); EOSINOPHILS # 0.4 10^3/ul (0.0-0.5); HEMOGLOBIN 8.1 g/dl (12.0-16.0); LYMPHOCYTES # 1.6 10^3/ul (0.8-2.9); LYMPHOCYTES % 12.3 % (15.0-51.0); MEAN CORPUSCULAR HEMOGLOBIN 29.1 pg (29.0-33.0); MEAN CORPUSCULAR HGB CONC 31.2 g/dl (32.0-37.0); MEAN CORPUSCULAR VOLUME 93.5 fl (82.0-101.0); MEAN PLATELET VOLUME 10.7 fl (7.4-10.4); MONOCYTE # 1.4 10^3/ul (0.3-0.9); MONOCYTES % 10.4 % (0.0-11.0); NEUTROPHIL # 9.6 10^3/ul (1.6-7.5); NEUTROPHILS % 72.6 % (39.0-77.0); PLATELET COUNT 473 10^3/UL (140-415); RED BLOOD COUNT 2.78 10^6/ul (4.20-5.40)
[2019-03-24] MEDS: INSULIN ASPART [NOVOLOG] 3 ML PEN SC ×4 (07:00→21:00)
[2019-03-24 07:18] LABS: ANION GAP 6 (5-13); BLOOD UREA NITROGEN 25 mg/dl (7-20); CALCIUM 8.1 mg/dl (8.4-10.2); CARBON DIOXIDE 30 mmol/L (21-31); CHLORIDE 102 mmol/L (97-110); CREATININE 4.61 mg/dl (0.44-1.00); Estimated GFR 11 mL/min (>60); GLUCOSE 126 mg/dl (70-220); PHOSPHORUS 2.7 mg/dl (2.5-4.9); SODIUM 138 mmol/L (135-144)
[2019-03-24] MEDS: FERROUS SULFATE (EC) 325 MG TAB PO ×2 (09:29→21:00)
[2019-03-24] MEDS: CALCIUM ACETATE 667 MG CAP PO ×3 (09:29→17:23)
[2019-03-24] MEDS: LOSARTAN 25 MG TAB PO ×2 (09:29→21:19)
[2019-03-24] MEDS: FOLIC ACID 1 MG TAB PO (09:29)
[2019-03-24] MEDS: FLUCONAZOLE 100 MG TAB PO (09:29)
[2019-03-24] MEDS: DOCUSATE SODIUM 100 MG CAP PO (09:30)
[2019-03-24] MEDS: NIFEdipine (XL) 60 MG TAB PO ×2 (09:30→21:27)
[2019-03-24] MEDS: MULTIVIT/CA CARB/B CMPLX/FA TAB PO (09:30)
[2019-03-24] MEDS: METOPROLOL 50 MG TAB PO ×2 (09:30→21:18)
[2019-03-24] MEDS: EUCERIN 113 GM CR TOP ×2 (09:31→21:20)
[2019-03-24] MEDS: DAKINS 0.0125%(1/40) 473 ML SOLUTION TP (09:31)
[2019-03-24] MEDS: HEPARIN 5,000 UNIT/1 ML VIAL SC ×2 (09:34→21:22)
[2019-03-24] MEDS: CEFTRIAXONE 2 GM/50 ML (PMX) 50 ML IVPB (13:14)
[2019-03-24] MEDS ORDERED: VANCOMYCIN IV PER PHARMACY XX (17:00)
[2019-03-24] MEDS: VANCOMYCIN HCL 2 GM in SOD CHLORIDE 0.9% 500 ML IVPB (19:35)
[2019-03-25] MEDS: HYDROCODONE/APAP (5/325) TAB PO (00:11)
[2019-03-25] MEDS: ACCUCHECK AT 2AM (Patients on SS coverage) XX (02:00)
[2019-03-25 05:21] LABS: ADD MAN DIFF? NO
[2019-03-25 05:31] LABS: WHITE BLOOD COUNT 10.6 10^3/ul (4.8-10.8)
[2019-03-25 05:31] LABS: BASOPHIL # 0.1 10^3/ul (0.0-0.1); BASOPHILS % 0.8 % (0.0-2.0); EOSINOPHILS # 0.4 10^3/ul (0.0-0.5); EOSINOPHILS % 3.5 % (0.0-7.0); HEMATOCRIT 24.8 % (37.0-47.0); HEMOGLOBIN 7.6 g/dl (12.0-16.0); LYMPHOCYTES # 1.4 10^3/ul (0.8-2.9); LYMPHOCYTES % 12.7 % (15.0-51.0); MEAN CORPUSCULAR HEMOGLOBIN 28.6 pg (29.0-33.0); MEAN CORPUSCULAR HGB CONC 30.6 g/dl (32.0-37.0); MEAN CORPUSCULAR VOLUME 93.2 fl (82.0-101.0); MEAN PLATELET VOLUME 10.6 fl (7.4-10.4); MONOCYTE # 1.3 10^3/ul (0.3-0.9); MONOCYTES % 11.7 % (0.0-11.0); NEUTROPHIL # 7.5 10^3/ul (1.6-7.5); NEUTROPHILS % 70.6 % (39.0-77.0); PLATELET COUNT 492 10^3/UL (140-415); RED BLOOD COUNT 2.66 10^6/ul (4.20-5.40); RED CELL DISTRIBUTION WIDTH 15.3 % (11.5-14.5)
[2019-03-25 05:55] LABS: ANION GAP 8 (5-13); BLOOD UREA NITROGEN 29 mg/dl (7-20); CALCIUM 8.2 mg/dl (8.4-10.2); CARBON DIOXIDE 28 mmol/L (21-31); CHLORIDE 103 mmol/L (97-110); CREATININE 6.01 mg/dl (0.44-1.00); Estimated GFR 8 mL/min (>60); GLUCOSE 94 mg/dl (70-220); POTASSIUM 3.7 mmol/L (3.5-5.1); SODIUM 139 mmol/L (135-144)
[2019-03-25] MEDS: INSULIN ASPART [NOVOLOG] 3 ML PEN SC ×2 (07:00→11:30)
[2019-03-25] MEDS: DAKINS 0.0125%(1/40) 473 ML SOLUTION TP (07:43)
[2019-03-25] MEDS: FERROUS SULFATE (EC) 325 MG TAB PO (08:03)
[2019-03-25] MEDS: FOLIC ACID 1 MG TAB PO (08:03)
[2019-03-25] MEDS: MULTIVIT/CA CARB/B CMPLX/FA TAB PO (08:03)
[2019-03-25] MEDS: DOCUSATE SODIUM 100 MG CAP PO (08:03)
[2019-03-25] MEDS: FLUCONAZOLE 100 MG TAB PO (08:03)
[2019-03-25] MEDS: CALCIUM ACETATE 667 MG CAP PO ×2 (08:03→14:10)
[2019-03-25] MEDS: EUCERIN 113 GM CR TOP (08:04)
[2019-03-25] MEDS: LOSARTAN 25 MG TAB PO ×2 (08:04→11:53)
[2019-03-25] MEDS: NIFEdipine (XL) 60 MG TAB PO ×2 (08:04→11:53)
[2019-03-25] MEDS: METOPROLOL 50 MG TAB PO ×2 (08:04→11:53)
[2019-03-25] MEDS: HEPARIN 5,000 UNIT/1 ML VIAL SC (08:18)
[2019-03-25] MEDS: HEPARIN 1000 UNITS/ML 10 ML INJ CATHETER (13:13)
[2019-03-26] MEDS ORDERED: [UNRECOGNIZED DRUG - OTHER] XX (05:00)
== END 2019-03-25 17:20 | disposition home health service (06) | DRG 853 ==
LOC: 2NE 03-20 14:31 → E/R 00:54 → PP2 03:01
PROC: 0JBR0ZZ Excision of Left Foot Subcutaneous Tissue and Fascia, Open Approach (ICD-10-PCS; principal; 2019-03-10 15:00)
PROC: 0KBW0ZZ Excision of Left Foot Muscle, Open Approach (ICD-10-PCS; 2019-03-10 15:24)
PROC: 5A1D70Z Performance of Urinary Filtration, Intermittent, Less than 6 Hours Per Day (ICD-10-PCS; 2019-03-10 15:24)
PROC: 30233N1 Transfusion of Nonautologous Red Blood Cells into Peripheral Vein, Percutaneous Approach (ICD-10-PCS; 2019-03-10 15:24)
PROC: 0HBNXZZ Excision of Left Foot Skin, External Approach (ICD-10-PCS; 2019-03-10 15:24)
PROC: 02H633Z Insertion of Infusion Device into Right Atrium, Percutaneous Approach (ICD-10-PCS; 2019-03-10 15:24)
PROC: 0JH63XZ Insertion of Tunneled Vascular Access Device into Chest Subcutaneous Tissue and Fascia, Percutaneous Approach (ICD-10-PCS; 2019-03-10 15:24)
PROC: 05HM33Z Insertion of Infusion Device into Right Internal Jugular Vein, Percutaneous Approach (ICD-10-PCS; 2019-03-10 15:24)
PROC: B513ZZA Fluoroscopy of Right Jugular Veins, Guidance (ICD-10-PCS; 2019-03-10 15:24)
PROC: 02PAX3Z Removal of Infusion Device from Heart, External Approach (ICD-10-PCS; 2019-03-10 15:24)
DX: A41.9 Sepsis, unspecified organism (principal); N18.6 End stage renal disease; N17.0 Acute kidney failure with tubular necrosis; D62 Acute posthemorrhagic anemia; Z68.42 Body mass index [BMI] 45.0-49.9, adult; L02.612 Cutaneous abscess of left foot; L03.116 Cellulitis of left lower limb; E87.2 Acidosis; B37.49 Other urogenital candidiasis; I12.0 Hypertensive chronic kidney disease with stage 5 chronic kidney disease or end stage renal disease; J44.9 Chronic obstructive pulmonary disease, unspecified; D63.1 Anemia in chronic kidney disease; E66.01 Morbid (severe) obesity due to excess calories; E11.621 Type 2 diabetes mellitus with foot ulcer; L97.529 Non-pressure chronic ulcer of other part of left foot with unspecified severity; E11.628 Type 2 diabetes mellitus with other skin complications; R19.7 Diarrhea, unspecified; K80.20 Calculus of gallbladder without cholecystitis without obstruction; E11.42 Type 2 diabetes mellitus with diabetic polyneuropathy; E11.22 Type 2 diabetes mellitus with diabetic chronic kidney disease; Z79.84 Long term (current) use of oral hypoglycemic drugs; Z89.422 Acquired absence of other left toe(s)
CPT/HCPCS: 36415; 36430; 36556; 71045; 73630-LT; 76775; 76942; 78806; 80048; 80053; 80061; 81001; 81003; 81025; 82550; 82595; 82728; 82962; 83036; 83540; 83605; 83735; 84100; 84132; 84145; 84484; 85014; 85018; 85025; 85049; 85610; 85651; 85670; 85730; 86021; 86038; 86140; 86160; 86226; 86430; 86703; 86704; 86706; 86709; 86803; 86850; 86900; 86901; 86920; 87040-91; 87070; 87075; 87086; 87102; 87116; 87340; 90935; 93005; 93970; 96374; 97110; 97161; 97530; 99285-25